=== PATIENT | female | born 1995 | race Caucasian/White ===

== ENCOUNTER 2022-12-05 07:31 | Inpatient (IN) ==
[2022-12-05] MEDS ORDERED: OXYTOCIN 30 UNITS/500 ML BAG IV PRN ×5 (07:42→09:37)
[2022-12-05] MEDS ORDERED: LIDOCAINE 1% LOCAL 20 ML VIAL INFIL PRN ×2 (07:42→08:48)
--- NOTE | 2022-12-05 07:52 | History & Physical Report ---
Date of Service December 05, 2022 Assessment & Plan (1) Encounter for induction of labor: Plan: Patient is a 27 yo at 41 0/7 WGA presenting to labor and delivery for induction d/t post dates. Blood type: O+, GBS neg, rubella immune Helms balloon placed last night and subsequently fell out during urination; pt dilated fingertip this AM- will attempt to replace balloon Plan to start oxytocin and rupture membranes later if necessary Proceed with labor and vaginal delivery Admission and Anticipated Discharge Date Admission Date: December 05, 2022 History of Present Illness Chief Complaint: induction of labor Primary Care Provider: Candace Parra PA-C Patient is a 27 yo female currently at 41 0/7 WGA with an ARLETTE 11/28/2022 as determined by LMP who is here for induction of labor. Her was uncomplicated. Denies contractions; movement present; denies fluid loss; denies bloody show External FHT and external uterine monitors used; category 1 tracing; normal FHT variability Had regular appointments with OB. Labs: (04/27/2022) Blood type: O+ Antibody screen: negative Hgb: 13.6 (today) Hct: 38.8 (today) WBC: 12.50 (today) Plt: 147 (today) Rubella: immune VDRL/RPR: neg Gonorrhea: neg Chlamydia: neg HIV: neg HbSAg: neg GBS: neg Other screens: cff-DNA: declined CF: declined SMA: declined Allergies Allergy/AdvReac Type Severity Reaction Status Date / Time amoxicillin Allergy RASH Verified 12/02/22 14:39 Penicillins Allergy RASH Verified 12/02/22 14:39 Home Medications Medication Instructions Recorded Confirmed Type fluticasone propionate 50 2 spray intranasal DAILY 09/17/21 12/05/22 History mcg/actuation nasal spray,suspension (Flonase Allergy Relief) prenat.vits,noreen,una-cbdn-cxptl 1 tab PO DAILY 04/19/22 12/05/22 History docusate sodium 100 mg capsule 100 mg PO TID 12/04/22 12/05/22 History (Colace) Patient History Medical History (Updated 12/05/22 @ 07:50 by Kiley Esquivel DO) History of chicken pox Lactose intolerance Surgical History S/P skin biopsy Family History Grandmother (Maternal) Allergic rhinitis Sister Allergic rhinitis Mother Ulcerative colitis Hypercholesteremia labor Father Hypercholesteremia Denies family history of Ovarian cancer Breast cancer Colorectal cancer Social History Smoking Status: Never smoker Do You Dip or Chew Tobacco: No; Hx Alcohol Use: Yes (Not during ) Hx Substance Use: No Preferred Language: Greek Communication Ability: Effective Director Of Software Development Required: No Beliefs That Will Affect Care: None marital status: marital status details: Ananda Willingham (26) [phone] Current Living Situation: Spouse Current Living Situation Comment: lives with spouse, dog, cat-spouse changing litter current occupational status: employed current occupation: Admin Ass[employer] Other Information That Helps Us Care for You: No Feels Safe at Home: No Is there a partner from a previous relationship who is making you feel unsafe now?: No Any Concerns about Your Family Situation: No Would You Like to Speak to Someone About Your Situation: No Safety Concerns: Feels Safe At This Time Assistive Devices: None Review of Systems Denies fever, chills, sweats. Denies SOB, difficulty breathing, chest pain, palpitations, and chest pressure. Denies breast pain. Denies dysuria. Endorses headache. Denies changes in vision. Physical Exam Physical Exam: General: Alert and oriented. No acute distress CV: Regular rate and rhythm. No murmurs. Respiratory: CTA bilaterally. No rhonchi, wheezes, or crackles. No increased work of breathing. Abdomen: Gravid; Soft, nontender upon palpation Pelvic: Pelvic exam per attending attestation Lower extremities: No LE edema. No deep calf pain. Results & Data Vital Signs (Past 12 Hours) Vital Signs Pulse BP 12/05/22 07:42 117 H 171/111 H Supervising Physician Co-Signing Physician Notes Resident Physician Supervision Note: I interviewed and examined the patient. Discussed with Dr. Esquivel and agree with findings and plan as documented in the note. Any exceptions or clarifications are listed here: Patient presents for induction. Very anxious. She notes the helms bulb fell out at 8:30 last night. On exam, the cervix is FT/50/-3. Fetus category one. MICs on toco. I suspect that the helms bulb was never really in the cervix. After discussion with Dr. Chino, who is on service today, the patient is agreeable to trying to place another bulb. A speculum was placed the cx was visualized, the helms was placed through this an 25cc of sterile water bleeding. A small amount of bleeding noted. She got nauseated at the end of the procedure. The fht were in the 80s when she got nauseated but recovered when nausea resolved and patient placed on her side. Will begin low dose pitocin at this point with the helms. Fetus is categroy one at this point. GBS negative. Documented By: Anahy Godinez MD, FACOG Resident Activity Tracking Resident Involvement: Resident Care Provided Care Provided: OB Delivery
[2022-12-05 08:39] LABS: Hematocrit (blood only) 38.8 % (37.0-47.0); Hemoglobin 13.6 g/dl (12.0-16.0); Mean Corpuscular Hemoglobin 32.7 pg (25.0-34.0); Mean Corpuscular Hgb Conc 35.1 g/dL (32.0-36.0); Mean Corpuscular Volume 93.3 fL (80.0-100.0); Mean Platelet Volume 11.8 fL (9.4-12.4); Platelet Count 147 K/uL (130-400); RDW Coefficient of Variation 13.1 % (11.5-14.5); RDW Standard Deviation 44.2 fL (36.4-46.3); Red Blood Count 4.16 M/uL (4.20-5.40)
[2022-12-05] MEDS ORDERED: LACTATED RINGER'S 1,000 ML IV PRN (08:48)
[2022-12-05] MEDS: LACTATED RINGER'S 1,000 ML IV PRN ×2 (09:07→23:19)
[2022-12-05] MEDS ORDERED: ONDANSETRON INJ 2 MG/ML 2 ML VIAL IV PRN (09:33)
[2022-12-05 09:41] LABS: Albumin Globulin Ratio 1.1 (0.9-2); Albumin Level 3.3 gm/dl (3.4-5.0); BUN Creatinine Ratio 22.4 (10-20); Bilirubin,Total 0.3 mg/dl (0.2-1.0); Calcium 9.2 mg/dl (8.6-10.3); Creatinine Clr Calc Pharmacy 135.1 ml/min; Est GFR (African American) 144.4 ml/min; Est GFR (Non-African American) 124.6 ml/min; Potassium 4.1 mmol/L (3.5-5.1); Total Protein 6.3 gm/dl (6.0-8.3)
--- NOTE | 2022-12-05 15:44 | Labor Progress Brief Note ---
Date of Service December 05, 2022 Subjective Intermittent back pain, helms still in Assessment & Plan (1) Encounter for induction of labor: Plan: 27 yo G1 at 41 wga admitted for late term IOL Normal to mild range BPs, labs wnl Fetus cat 1 Labor - helms bulb still in place, Pit at 6. Continue induction. Discussed pelvis is ?narrow vs tense due to discomfort from bulb and exam, no way to know if will impact progression without continuing GBS neg Epidural PRN, discussed potential benefit of it and she is open to it at some point Admission and Anticipated Discharge Date Admission Date: December 05, 2022 Physical Exam Genitourinary: OB Exam Monitor Tracing: + external FHT monitor used, + external uterine monitor used and + category I Helms bulb still palpated in cervix Results & Data Vital Signs (Past 12 Hours) Vital Signs Temp Pulse Resp BP 12/05/22 07:48 98.2 F 20 12/05/22 15:34 96 H 142/95 H 12/05/22 14:47 100 H 144/89 H 12/05/22 13:47 93 H 150/74 H 12/05/22 13:45 102 H 185/102 H 12/05/22 12:09 89 18 145/89 H 12/05/22 11:18 20 12/05/22 11:18 97.7 F 20 12/05/22 11:17 90 129/70 12/05/22 10:40 96 H 145/69 H 12/05/22 09:35 89 133/81 12/05/22 08:14 101 H 138/85 12/05/22 08:00 106 H 18 138/88 12/05/22 07:42 98.2 F 117 H 18 171/111 H Coding Level of Care Code None Diagnoses Encounter for induction of labor Z34.90
[2022-12-05] MEDS ORDERED: DOCUSATE SODIUM 100 MG CAP PO ONE (21:31)
[2022-12-05] MEDS ORDERED: SODIUM CHLORIDE 0.9% PF INJ 10 ML VIAL ONE (23:08)
[2022-12-05] MEDS ORDERED: ePHEDrine sulfate 50 MG/ML AMP ONE (23:08)
[2022-12-05] MEDS ORDERED: fentaNYL citrate PF 100 MCG/2 ML VIAL ONE (23:08)
[2022-12-05] MEDS ORDERED: BUPIVACAINE 0.25% PF 30 ML VIAL ONE (23:09)
[2022-12-05] MEDS ORDERED: LIDOCAINE 2%/EPINEPHRINE 1:200,000 20 ML PF ONE (23:09)
[2022-12-05] MEDS ORDERED: fentaNYL 2MCG/ML ROPIVACAINE 1.25MG/ML 100 ML BAG EPI ONE (23:09)
--- NOTE | 2022-12-05 23:24 | Anesthesiology Consultation ---
Date of Service December 05, 2022 Assessment & Plan Chart Review Chart Review: Acceptable Risk for Labor Epidural Consults Requested none ASA ASA2 Proposed Anesthesia Anesthesia Type: Labor Epidural Risk / Benefits Reviewed With: PT / POA / Parent / Guardian, Accepts Plan and Informed Consent Obtained History Height/Weight Height: 5 ft Weight: 81.193 kg Allergies Allergy/AdvReac Type Severity Reaction Status Date / Time amoxicillin Allergy RASH Verified 12/02/22 14:39 Penicillins Allergy RASH Verified 12/02/22 14:39 Medications Home Medications Medication Instructions Recorded Confirmed Last Taken fluticasone propionate 50 2 spray intranasal DAILY 09/17/21 12/05/22 12/05/22 mcg/actuation nasal spray,suspension (Flonase Allergy Relief) prenat.vits,noreen,ose-arpj-okmwe 1 tab PO DAILY 04/19/22 12/05/22 12/05/22 docusate sodium 100 mg capsule 100 mg PO TID 12/04/22 12/05/22 12/05/22 (Colace) Active Medications Generic Name Dose Route Start Last Admin Trade Name Freq PRN Reason Stop Dose Admin Lactated Ringer's 1,000 mls @ 125 mls/hr 12/05/22 07:42 12/05/22 23:19 Lr IV 12/07/22 07:41 999 mls/hr .Q8H PRN Administration L&D Protocol Protocol Oxytocin 30 units in 500 mls @ 20 mls/hr 12/05/22 09:08 12/05/22 20:59 Pitocin IV 12/07/22 09:07 1.2 units/hr .Q24H PRN 20 mls/hr Labor Induction/Augmentation Titration Protocol 1.2 UNITS/HR Ondansetron HCl 4 mg 12/05/22 09:33 12/05/22 11:55 Ondansetron Inj 2 Mg/Ml 2 Ml Vial IV 01/04/23 09:32 4 mg Q6H PRN Administration Nausea And Vomiting Past Medical History Medical History History of chicken pox Lactose intolerance Exercise / Class Metabolic Activity II 4-5 Yardwork/Stairs/Walk up hill Past Family History Family History Grandmother (Maternal) Allergic rhinitis Sister Allergic rhinitis Mother Ulcerative colitis Hypercholesteremia labor Father Hypercholesteremia Denies family history of Ovarian cancer Breast cancer Colorectal cancer Past Surgical History Surgical History S/P skin biopsy Past Anesthesia History No Hx of Anesthesia Complications and No Family Hx of Anesthesia Complications History of PONV No Hx of PONV and No Hx of Motion Sickness Social History Smoking Status: Never smoker Do You Dip or Chew Tobacco: No Hx Alcohol Use: Yes (Not during ) Hx Substance Use: No Physical Exam Vital Signs Last Vital Signs Temp 97.7 F 12/05/22 18:59 Pulse 88 12/05/22 21:55 Resp 20 12/05/22 21:30 BP 137/72 12/05/22 21:55 O2 Del Method Room Air 12/05/22 19:10 ENMT Mouth: no dentition abnormality Thyromental Distance: > or= 3.5 Finger Breadths Mallampati Class: II Neck normal visual inspection Respiratory normal respiratory effort Auscultation: lungs clear to auscultation bilaterally Cardiovascular Rate/Rhythm: regular rate and regular rhythm Testing Laboratory Results 12/05/22 08:13 12/05/22 08:17
--- NOTE | 2022-12-05 23:27 | Labor Progress Brief Note ---
Date of Service December 05, 2022 Subjective back pain more constant, helms bulb still in Assessment & Plan (1) Encounter for induction of labor: Plan: 27 yo G1 at 41 wga admitted for late term IOL Normal to mild range BPs, labs wnl Fetus cat 1 Labor - Balloon removed and it seems the internal os is more dilated c/w balloon benefit but external not yet equal. We did discuss that at this point, we have not gotten her into labor but have not tried all of our options. Did discuss that a is an option that the pt has as she is concerned about her energy level and being able to push in the future. Pit is currently at 20 but it seems that some change has occurred w/ pit and helms. Discussed continuing pit to 30 and attempting arom and pt desires to continue, previously palpated bag no longer palpated however very scant fluid seen so will need to further eval as pt desires epidural so will recheck after comfortable as it seems touching the cervix is very painful for her. GBS neg Desires epidural Admission and Anticipated Discharge Date Admission Date: December 05, 2022 Physical Exam Genitourinary: OB Exam Monitor Tracing: + external FHT monitor used, + external uterine monitor used and + category I Helms bulb removed as >12 hours. On re-exam, the internal os is dilated to 3ish cm I think while external is 1.5 so suspect the bulb did have some impact. Results & Data Vital Signs (Past 12 Hours) Vital Signs Temp Pulse Resp BP O2 Del Method 12/05/22 19:10 Room Air 12/05/22 21:30 20 12/05/22 21:30 20 12/05/22 21:55 88 137/72 12/05/22 21:00 18 12/05/22 21:00 18 12/05/22 20:57 90 136/75 12/05/22 19:56 98 H 18 139/83 12/05/22 19:00 16 12/05/22 19:00 16 12/05/22 18:59 97.7 F 99 H 20 148/80 H 12/05/22 17:30 16 12/05/22 17:30 16 12/05/22 18:33 96 H 141/87 H 12/05/22 17:25 103 H 147/72 H 12/05/22 16:30 18 12/05/22 16:30 18 12/05/22 16:00 16 12/05/22 16:00 16 12/05/22 16:36 100 H 132/81 12/05/22 15:30 16 12/05/22 15:30 98.2 F 16 12/05/22 15:34 96 H 142/95 H 12/05/22 14:47 100 H 144/89 H 12/05/22 13:47 93 H 150/74 H 12/05/22 13:45 102 H 185/102 H 12/05/22 12:09 89 18 145/89 H Coding Level of Care Code None Diagnoses Encounter for induction of labor Z34.90
[2022-12-06] MEDS ORDERED: LIDOCAINE 2%/EPINEPHRINE 1:200,000 20 ML PF EPI STA (00:34)
[2022-12-06] MEDS ORDERED: BUPIVACAINE 0.25% PF 30 ML VIAL EPI STA (00:34)
[2022-12-06] MEDS ORDERED: BUPIVACAINE 0.25% PF 30 ML VIAL EPI PRN (00:34)
[2022-12-06] MEDS ORDERED: fentaNYL 2MCG/ML ROPIVACAINE 1.25MG/ML 100 ML BAG EPI PRN (00:34)
[2022-12-06] MEDS ORDERED: fentaNYL citrate PF 100 MCG/2 ML VIAL EPI STA (00:34)
[2022-12-06] MEDS ORDERED: ROPIVACAINE 0.5% PF 5 MG/ML 20 ML VIAL EPI PRN (00:34)
[2022-12-06] MEDS ORDERED: ePHEDrine sulfate 50 MG/ML AMP IV PRN ×2 (00:34→10:49)
[2022-12-06] MEDS ORDERED: NALOXONE HCL 1 MG in SODIUM CHLORIDE 0.9% 1000ML 1,000 ML IV PRN ×2 (00:34→10:49)
[2022-12-06] MEDS ORDERED: NALBUPHINE HCL INJ 10 MG/ML AMP IV PRN ×2 (00:34→10:49)
[2022-12-06] MEDS ORDERED: SODIUM CHLORIDE 0.9% PF INJ 10 ML VIAL EPI PRN (00:34)
[2022-12-06] MEDS ORDERED: SODIUM CHLORIDE 0.9% PF INJ 10 ML VIAL EPI STA (00:34)
[2022-12-06] MEDS ORDERED: diphenhydrAMINE 50 MG/ML VIAL IV PRN ×2 (00:34→10:49)
[2022-12-06] MEDS ORDERED: LIDOCAINE 2% MPF LOCAL 5 ML VIAL EPI PRN (00:34)
[2022-12-06] MEDS ORDERED: fentaNYL citrate PF 100 MCG/2 ML VIAL EPI PRN (00:34)
[2022-12-06] MEDS ORDERED: NALOXONE HCL 0.4 MG/1 ML VIAL/CARP IV PRN ×2 (00:34→10:49)
[2022-12-06] MEDS ORDERED: ONDANSETRON INJ 2 MG/ML 2 ML VIAL IV PRN ×3 (00:34→11:59)
--- NOTE | 2022-12-06 01:54 | Labor Progress Brief Note ---
Date of Service December 06, 2022 Subjective More comfortable w/ epidural, still some discomfort Assessment & Plan (1) Encounter for induction of labor: Plan: 27 yo G1 at 41 wga admitted for late term IOL Normal to mild range BPs, labs wnl Fetus cat 1 Labor - pit at 22 but external monitor noted ?tachysystole, IUPC placed to guide pit but did not really pecan picker significant ctx. Does feel like has ROM as no bag felt. There is some progression in effacement and station. Discussed pit break to just reset given difficulty with monitoring and lack of change. Will break for one hour and restart GBS neg Epidural in place Admission and Anticipated Discharge Date Admission Date: December 05, 2022 Physical Exam Genitourinary: Manual OB Exam: + cervical dilation (about 3-4cm internal os, 1.5cm external), + cervical effacement 70% and + station -2 (improved from prior) OB Exam Monitor Tracing: + external FHT monitor used, + intra-uterine pressure catheter used (placed) and + category I no forebag palpated to rupture Results & Data Vital Signs (Past 12 Hours) Vital Signs Temp Pulse Resp BP Pulse Ox O2 Del Method 12/05/22 19:10 Room Air 12/06/22 01:47 105 H 94 12/06/22 01:42 108 H 96 12/06/22 01:40 96 H 138/87 12/06/22 01:37 105 H 95 12/06/22 01:32 91 H 94 12/06/22 01:27 110 H 96 12/06/22 01:26 100 H 141/89 H 12/06/22 01:22 88 93 12/06/22 01:17 93 H 94 12/06/22 01:12 94 H 95 12/06/22 01:11 97 H 136/81 12/06/22 01:00 16 12/06/22 01:00 16 12/06/22 01:07 98 H 95 12/06/22 01:02 92 H 93 12/06/22 00:57 92 H 93 12/06/22 00:55 94 H 143/90 H 12/06/22 00:52 105 H 95 12/06/22 00:47 99 H 94 12/06/22 00:42 97 H 97 12/06/22 00:41 95 H 139/88 12/06/22 00:37 91 H 95 12/06/22 00:32 92 H 95 12/06/22 00:30 16 12/06/22 00:30 16 12/06/22 00:09 16 12/06/22 00:09 16 12/06/22 00:26 98.2 F 12/06/22 00:27 93 H 96 12/06/22 00:23 93 H 16 127/79 12/06/22 00:22 98 H 95 12/06/22 00:19 96 H 18 137/72 12/06/22 00:17 93 H 95 12/06/22 00:12 95 H 96 12/06/22 00:13 94 H 16 128/80 12/06/22 00:07 93 H 18 95 12/06/22 00:08 92 H 124/70 12/06/22 00:05 88 20 133/75 12/06/22 00:03 90 18 135/78 12/06/22 00:02 106 H 96 12/05/22 23:57 108 H 96 12/05/22 23:52 98 H 96 12/05/22 23:47 112 H 96 12/05/22 23:42 110 H 95 12/05/22 23:37 112 H 96 12/05/22 23:32 117 H 97 12/05/22 23:10 98.2 F 12/05/22 23:27 98 H 97 12/05/22 23:23 98 H 94 12/05/22 23:22 97 H 95 12/05/22 21:30 20 12/05/22 21:30 20 12/05/22 21:55 88 137/72 12/05/22 21:00 18 12/05/22 21:00 18 12/05/22 20:57 90 136/75 12/05/22 19:56 98 H 18 139/83 12/05/22 19:00 16 12/05/22 19:00 16 12/05/22 18:59 97.7 F 99 H 20 148/80 H 12/05/22 17:30 16 12/05/22 17:30 16 12/05/22 18:33 96 H 141/87 H 12/05/22 17:25 103 H 147/72 H 12/05/22 16:30 18 12/05/22 16:30 18 12/05/22 16:00 16 12/05/22 16:00 16 12/05/22 16:36 100 H 132/81 12/05/22 15:30 16 12/05/22 15:30 98.2 F 16 12/05/22 15:34 96 H 142/95 H 12/05/22 14:47 100 H 144/89 H Coding Level of Care Code None Diagnoses Encounter for induction of labor Z34.90
[2022-12-06] MEDS: LACTATED RINGER'S 1,000 ML IV PRN (04:35)
--- NOTE | 2022-12-06 08:07 | Labor Progress Brief Note ---
Date of Service December 06, 2022 Subjective Comfortable w/ epidural Assessment & Plan (1) Encounter for induction of labor: Plan: 27 yo G1 at 41 wga admitted for late term IOL Normal to mild range BPs, labs wnl Fetus cat 1 Labor - Had pit break overnight, the previously palpated funnel is harder to feel as cervix has thinned. head has come down a bit as well. IUPC is in but seems to be glitchy as it comes in and out of registering ctx and strength. Did not get to AROM till around 11pm as balloon was in all day but there is some progress noted. Will continue pit and discuss with on-coming provider so they are aware of progress GBS neg Epidural in place Admission and Anticipated Discharge Date Admission Date: December 05, 2022 Physical Exam Genitourinary: OB Exam Monitor Tracing: + external FHT monitor used, + intra- uterine pressure catheter used (q3) and + category I SVE - funneling no longer palpated as effacement has progressed, more like 80% now. As cervix has thinned, the previous internal os 3cm is harder to palpate but I feel like I can feel it. Station about -1 Results & Data Vital Signs (Past 12 Hours) Vital Signs Temp Pulse Resp BP Pulse Ox 12/06/22 07:58 106 H 96 12/06/22 07:55 96 H 134/77 12/06/22 07:53 106 H 96 12/06/22 07:48 112 H 96 12/06/22 07:43 97 H 96 12/06/22 07:40 101 H 142/83 H 12/06/22 07:38 98 H 96 12/06/22 07:33 100 H 96 12/06/22 07:28 18 12/06/22 07:28 98.2 F 101 H 18 96 12/06/22 07:25 88 148/86 H 12/06/22 07:23 93 H 95 12/06/22 07:18 97 H 96 12/06/22 07:13 99 H 95 12/06/22 07:11 90 141/83 H 12/06/22 07:08 104 H 96 12/06/22 07:00 18 12/06/22 07:00 18 12/06/22 07:03 93 H 97 12/06/22 06:58 98 H 94 12/06/22 06:55 97 H 132/74 05 06:53 104 H 97 05 06:48 100 H 96 05 06:43 94 H 97 05 06:40 82 120/69 05 06:38 90 96 05 06:30 16 12/06/22 06:30 16 12/06/22 06:33 82 96 12/06/22 06:28 86 97 12/06/22 06:25 93 H 130/76 05 06:23 82 96 12/06/22 06:18 93 H 97 12/06/22 06:13 88 96 12/06/22 06:10 98.4 F 87 16 127/70 12/06/22 06:08 90 97 12/06/22 05:45 16 12/06/22 05:45 16 12/06/22 06:03 91 H 97 12/06/22 05:58 82 95 12/06/22 05:55 82 118/65 12/06/22 05:53 83 94 12/06/22 05:48 85 93 12/06/22 05:43 78 95 12/06/22 05:41 83 116/63 05 05:38 85 94 12/06/22 05:33 96 H 96 12/06/22 05:28 107 H 94 12/06/22 05:25 97 H 142/74 H 12/06/22 05:15 16 12/06/22 05:15 16 12/06/22 05:23 102 H 92 12/06/22 05:18 105 H 94 12/06/22 05:13 96 H 94 12/06/22 05:10 97 H 140/78 12/06/22 05:08 99 H 93 12/06/22 05:03 96 H 93 12/06/22 04:58 91 H 94 12/06/22 04:55 90 136/76 05 04:53 89 94 05 04:30 16 12/06/22 04:30 16 12/06/22 04:48 98 H 94 12/06/22 04:35 98.8 F 12/06/22 04:43 113 H 96 12/06/22 04:41 102 H 147/83 H 12/06/22 04:38 105 H 93 0523 04:33 107 H 96 12/06/22 04:28 89 95 12/06/22 04:25 87 104/57 L 12/06/22 04:23 87 94 12/06/22 04:18 88 94 12/06/22 04:13 87 94 12/06/22 04:10 90 117/58 L 12/06/22 04:08 97 H 94 12/06/22 04:03 88 93 12/06/22 03:58 88 93 12/06/22 03:55 96 H 118/60 12/06/22 03:53 92 H 96 12/06/22 03:48 91 H 94 12/06/22 03:43 92 H 95 12/06/22 03:40 90 112/59 L 12/06/22 03:38 101 H 97 12/06/22 03:33 96 H 95 12/06/22 03:28 91 H 94 12/06/22 03:25 90 113/55 L 12/06/22 03:23 98 H 95 12/06/22 03:18 97 H 95 12/06/22 02:30 16 12/06/22 02:30 16 12/06/22 03:00 18 12/06/22 03:00 18 12/06/22 03:13 102 H 94 12/06/22 03:08 18 12/06/22 03:08 98.6 F 18 12/06/22 03:11 89 113/56 L 12/06/22 03:07 95 H 94 12/06/22 03:02 103 H 95 12/06/22 02:57 110 H 94 12/06/22 02:55 109 H 132/77 12/06/22 02:52 100 H 92 12/06/22 02:47 96 H 93 12/06/22 02:42 109 H 93 12/06/22 02:40 97 H 133/74 05 02:37 96 H 92 12/06/22 02:32 108 H 93 05 02:27 98 H 93 12/06/22 02:25 103 H 138/80 05 02:22 95 H 94 05 02:17 108 H 93 05 02:12 95 H 93 12/06/22 02:10 103 H 134/83 05/23 02:07 102 H 94 12/06/22 02:00 16 12/06/22 02:00 16 12/06/22 02:02 105 H 94 12/06/22 01:57 98 H 94 12/06/22 01:56 97 H 136/86 12/06/22 01:45 98.2 F 12/06/22 01:52 104 H 95 12/06/22 01:28 18 12/06/22 01:28 18 12/06/22 01:47 105 H 94 12/06/22 01:42 108 H 96 12/06/22 01:40 96 H 138/87 12/06/22 01:37 105 H 95 12/06/22 01:32 91 H 94 12/06/22 01:27 110 H 96 12/06/22 01:26 100 H 141/89 H 12/06/22 01:22 88 93 12/06/22 01:17 93 H 94 12/06/22 01:12 94 H 95 12/06/22 01:11 97 H 136/81 12/06/22 01:00 16 12/06/22 01:00 16 12/06/22 01:07 98 H 95 12/06/22 01:02 92 H 93 12/06/22 00:57 92 H 93 12/06/22 00:55 94 H 143/90 H 12/06/22 00:52 105 H 95 12/06/22 00:47 99 H 94 12/06/22 00:42 97 H 97 12/06/22 00:41 95 H 139/88 12/06/22 00:37 91 H 95 12/06/22 00:32 92 H 95 12/06/22 00:30 16 12/06/22 00:30 16 12/06/22 00:09 16 12/06/22 00:09 16 12/06/22 00:26 98.2 F 12/06/22 00:27 93 H 96 12/06/22 00:23 93 H 16 127/79 12/06/22 00:22 98 H 95 12/06/22 00:19 96 H 18 137/72 12/06/22 00:17 93 H 95 12/06/22 00:12 95 H 96 12/06/22 00:13 94 H 16 128/80 0523 00:07 93 H 18 95 12/06/22 00:08 92 H 124/70 12/06/22 00:05 88 20 133/75 12/06/22 00:03 90 18 135/78 12/06/22 00:02 106 H 96 12/05/22 23:57 108 H 96 12/05/22 23:52 98 H 96 12/05/22 23:47 112 H 96 12/05/22 23:42 110 H 95 12/05/22 23:37 112 H 96 12/05/22 23:32 117 H 97 12/05/22 23:10 98.2 F 12/05/22 23:27 98 H 97 12/05/22 23:23 98 H 94 12/05/22 23:22 97 H 95 12/05/22 21:30 20 12/05/22 21:30 20 12/05/22 21:55 88 137/72 12/05/22 21:00 18 12/05/22 21:00 18 12/05/22 20:57 90 136/75 Coding Level of Care Code None Diagnoses Encounter for induction of labor Z34.90
--- NOTE | 2022-12-06 09:22 | Labor Progress Brief Note ---
Date of Service December 06, 2022 Signed over at 8:30 in the morning from Dr. Chino did really receive a full update patient then had a prolonged D-cell on Pitocin just after 9 AM this responded with changing position and stopping Pitocin. She had several prolonged D cells but these have now recovered with Pitocin off. I reviewed her long course of labor she has certainly had significant Pitocin time and cervical Mora dilation and she is also ruptured I discussed we could stop the Pitocin and restart at half dose again if the cells returned then we would have to stop again I also discussed the option of as there is caput palpated and I do think this is a prolonged effort. And with the worsening heart rate tracing they may not want to restart Pitocin I have given them some time to talk things over and certainly there is no immediacy to the situation as she is now has a reassuring looking heart rate tracing Assessment & Plan Admission and Anticipated Discharge Date Admission Date: December 05, 2022 Results & Data Vital Signs (Past 12 Hours) Vital Signs Temp Pulse Resp BP Pulse Ox 12/06/22 09:18 109 H 96 12/06/22 09:13 112 H 95 12/06/22 09:10 102 H 157/89 H 12/06/22 09:08 90 95 12/06/22 09:03 88 94 12/06/22 08:00 16 12/06/22 08:00 16 12/06/22 08:58 94 H 94 12/06/22 08:57 16 12/06/22 08:57 16 12/06/22 08:55 85 165/93 H 12/06/22 08:53 102 H 96 12/06/22 08:48 101 H 96 12/06/22 08:43 98 H 95 12/06/22 08:40 93 H 148/88 H 12/06/22 08:38 93 H 95 12/06/22 08:33 95 H 95 12/06/22 08:28 98 H 96 12/06/22 08:26 95 H 139/89 12/06/22 08:23 93 H 95 12/06/22 08:18 97 H 94 12/06/22 08:13 93 H 97 12/06/22 08:11 100 H 136/79 12/06/22 08:08 92 H 97 12/06/22 08:03 102 H 96 12/06/22 07:58 106 H 96 12/06/22 07:55 96 H 134/77 05 07:53 106 H 96 12/06/22 07:48 112 H 96 12/06/22 07:43 97 H 96 12/06/22 07:40 101 H 142/83 H 12/06/22 07:38 98 H 96 12/06/22 07:33 100 H 96 12/06/22 07:28 18 12/06/22 07:28 98.2 F 101 H 18 96 12/06/22 07:25 88 148/86 H 12/06/22 07:23 93 H 95 12/06/22 07:18 97 H 96 12/06/22 07:13 99 H 95 12/06/22 07:11 90 141/83 H 12/06/22 07:08 104 H 96 12/06/22 07:00 18 12/06/22 07:00 18 12/06/22 07:03 93 H 97 12/06/22 06:58 98 H 94 12/06/22 06:55 97 H 132/74 12/06/22 06:53 104 H 97 12/06/22 06:48 100 H 96 12/06/22 06:43 94 H 97 12/06/22 06:40 82 120/69 12/06/22 06:38 90 96 12/06/22 06:30 16 12/06/22 06:30 16 12/06/22 06:33 82 96 12/06/22 06:28 86 97 12/06/22 06:25 93 H 130/76 05 06:23 82 96 12/06/22 06:18 93 H 97 12/06/22 06:13 88 96 12/06/22 06:10 98.4 F 87 16 127/70 05 06:08 90 97 12/06/22 05:45 16 12/06/22 05:45 16 12/06/22 06:03 91 H 97 12/06/22 05:58 82 95 12/06/22 05:55 82 118/65 05 05:53 83 94 05 05:48 85 93 12/06/22 05:43 78 95 12/06/22 05:41 83 116/63 05 05:38 85 94 12/06/22 05:33 96 H 96 12/06/22 05:28 107 H 94 12/06/22 05:25 97 H 142/74 H 12/06/22 05:15 16 12/06/22 05:15 16 12/06/22 05:23 102 H 92 12/06/22 05:18 105 H 94 12/06/22 05:13 96 H 94 12/06/22 05:10 97 H 140/78 05 05:08 99 H 93 12/06/22 05:03 96 H 93 12/06/22 04:58 91 H 94 12/06/22 04:55 90 136/76 12/06/22 04:53 89 94 12/06/22 04:30 16 12/06/22 04:30 16 12/06/22 04:48 98 H 94 12/06/22 04:35 98.8 F 12/06/22 04:43 113 H 96 12/06/22 04:41 102 H 147/83 H 12/06/22 04:38 105 H 93 12/06/22 04:33 107 H 96 12/06/22 04:28 89 95 12/06/22 04:25 87 104/57 L 12/06/22 04:23 87 94 12/06/22 04:18 88 94 12/06/22 04:13 87 94 12/06/22 04:10 90 117/58 L 12/06/22 04:08 97 H 94 12/06/22 04:03 88 93 12/06/22 03:58 88 93 12/06/22 03:55 96 H 118/60 05 03:53 92 H 96 12/06/22 03:48 91 H 94 12/06/22 03:43 92 H 95 12/06/22 03:40 90 112/59 L 12/06/22 03:38 101 H 97 12/06/22 03:33 96 H 95 05 03:28 91 H 94 12/06/22 03:25 90 113/55 L 12/06/22 03:23 98 H 95 12/06/22 03:18 97 H 95 12/06/22 02:30 16 12/06/22 02:30 16 12/06/22 03:00 18 12/06/22 03:00 18 12/06/22 03:13 102 H 94 05 03:08 18 12/06/22 03:08 98.6 F 18 12/06/22 03:11 89 113/56 L 05 03:07 95 H 94 05 03:02 103 H 95 12/06/22 02:57 110 H 94 12/06/22 02:55 109 H 132/77 12/06/22 02:52 100 H 92 12/06/22 02:47 96 H 93 12/06/22 02:42 109 H 93 12/06/22 02:40 97 H 133/74 12/06/22 02:37 96 H 92 12/06/22 02:32 108 H 93 12/06/22 02:27 98 H 93 12/06/22 02:25 103 H 138/80 12/06/22 02:22 95 H 94 12/06/22 02:17 108 H 93 12/06/22 02:12 95 H 93 12/06/22 02:10 103 H 134/83 12/06/22 02:07 102 H 94 12/06/22 02:00 16 12/06/22 02:00 16 12/06/22 02:02 105 H 94 12/06/22 01:57 98 H 94 12/06/22 01:56 97 H 136/86 12/06/22 01:45 98.2 F 12/06/22 01:52 104 H 95 12/06/22 01:28 18 12/06/22 01:28 18 12/06/22 01:47 105 H 94 12/06/22 01:42 108 H 96 12/06/22 01:40 96 H 138/87 12/06/22 01:37 105 H 95 12/06/22 01:32 91 H 94 05 01:27 110 H 96 12/06/22 01:26 100 H 141/89 H 05 01:22 88 93 12/06/22 01:17 93 H 94 05 01:12 94 H 95 12/06/22 01:11 97 H 136/81 12/06/22 01:00 16 12/06/22 01:00 16 12/06/22 01:07 98 H 95 12/06/22 01:02 92 H 93 12/06/22 00:57 92 H 93 12/06/22 00:55 94 H 143/90 H 12/06/22 00:52 105 H 95 12/06/22 00:47 99 H 94 12/06/22 00:42 97 H 97 12/06/22 00:41 95 H 139/88 12/06/22 00:37 91 H 95 12/06/22 00:32 92 H 95 12/06/22 00:30 16 12/06/22 00:30 16 12/06/22 00:09 16 12/06/22 00:09 16 12/06/22 00:26 98.2 F 12/06/22 00:27 93 H 96 12/06/22 00:23 93 H 16 127/79 12/06/22 00:22 98 H 95 12/06/22 00:19 96 H 18 137/72 12/06/22 00:17 93 H 95 12/06/22 00:12 95 H 96 12/06/22 00:13 94 H 16 128/80 12/06/22 00:07 93 H 18 95 12/06/22 00:08 92 H 124/70 12/06/22 00:05 88 20 133/75 12/06/22 00:03 90 18 135/78 12/06/22 00:02 106 H 96 12/05/22 23:57 108 H 96 12/05/22 23:52 98 H 96 12/05/22 23:47 112 H 96 12/05/22 23:42 110 H 95 12/05/22 23:37 112 H 96 12/05/22 23:32 117 H 97 12/05/22 23:10 98.2 F 12/05/22 23:27 98 H 97 12/05/22 23:23 98 H 94 12/05/22 23:22 97 H 95 12/05/22 21:30 20 12/05/22 21:30 20 12/05/22 21:55 88 137/72 Coding Level of Care Code None Diagnoses
--- NOTE | 2022-12-06 09:25 | Labor Progress Brief Note ---
Date of Service December 06, 2022 Additionally this is the first time of check the patient I think she is in the range of 1 to 2 cm certainly for the external aspect of the cervix my understanding is there was more internal dilation earlier but I cannot palpate this at this time and I discussed there is a normal variability and checking cervix is between different providers and nurses Assessment & Plan Admission and Anticipated Discharge Date Admission Date: December 05, 2022 Results & Data Vital Signs (Past 12 Hours) Vital Signs Temp Pulse Resp BP Pulse Ox 12/06/22 09:18 109 H 96 12/06/22 09:13 112 H 95 12/06/22 09:10 102 H 157/89 H 12/06/22 09:08 90 95 12/06/22 09:03 88 94 12/06/22 08:00 16 12/06/22 08:00 16 12/06/22 08:58 94 H 94 12/06/22 08:57 16 12/06/22 08:57 16 12/06/22 08:55 85 165/93 H 12/06/22 08:53 102 H 96 12/06/22 08:48 101 H 96 12/06/22 08:43 98 H 95 12/06/22 08:40 93 H 148/88 H 12/06/22 08:38 93 H 95 12/06/22 08:33 95 H 95 12/06/22 08:28 98 H 96 12/06/22 08:26 95 H 139/89 12/06/22 08:23 93 H 95 12/06/22 08:18 97 H 94 12/06/22 08:13 93 H 97 12/06/22 08:11 100 H 136/79 12/06/22 08:08 92 H 97 12/06/22 08:03 102 H 96 12/06/22 07:58 106 H 96 12/06/22 07:55 96 H 134/77 12/06/22 07:53 106 H 96 12/06/22 07:48 112 H 96 12/06/22 07:43 97 H 96 12/06/22 07:40 101 H 142/83 H 12/06/22 07:38 98 H 96 12/06/22 07:33 100 H 96 12/06/22 07:28 18 12/06/22 07:28 98.2 F 101 H 18 96 12/06/22 07:25 88 148/86 H 05 07:23 93 H 95 12/06/22 07:18 97 H 96 05 07:13 99 H 95 12/06/22 07:11 90 141/83 H 05 07:08 104 H 96 12/06/22 07:00 18 12/06/22 07:00 18 12/06/22 07:03 93 H 97 12/06/22 06:58 98 H 94 12/06/22 06:55 97 H 132/74 05 06:53 104 H 97 12/06/22 06:48 100 H 96 12/06/22 06:43 94 H 97 12/06/22 06:40 82 120/69 05 06:38 90 96 12/06/22 06:30 16 12/06/22 06:30 16 12/06/22 06:33 82 96 12/06/22 06:28 86 97 12/06/22 06:25 93 H 130/76 12/06/22 06:23 82 96 12/06/22 06:18 93 H 97 12/06/22 06:13 88 96 12/06/22 06:10 98.4 F 87 16 127/70 12/06/22 06:08 90 97 12/06/22 05:45 16 12/06/22 05:45 16 12/06/22 06:03 91 H 97 12/06/22 05:58 82 95 12/06/22 05:55 82 118/65 12/06/22 05:53 83 94 12/06/22 05:48 85 93 12/06/22 05:43 78 95 12/06/22 05:41 83 116/63 12/06/22 05:38 85 94 12/06/22 05:33 96 H 96 12/06/22 05:28 107 H 94 12/06/22 05:25 97 H 142/74 H 12/06/22 05:15 16 12/06/22 05:15 16 12/06/22 05:23 102 H 92 12/06/22 05:18 105 H 94 12/06/22 05:13 96 H 94 12/06/22 05:10 97 H 140/78 12/06/22 05:08 99 H 93 12/06/22 05:03 96 H 93 12/06/22 04:58 91 H 94 12/06/22 04:55 90 136/76 05 04:53 89 94 12/06/22 04:30 16 12/06/22 04:30 16 12/06/22 04:48 98 H 94 12/06/22 04:35 98.8 F 05 04:43 113 H 96 12/06/22 04:41 102 H 147/83 H 12/06/22 04:38 105 H 93 12/06/22 04:33 107 H 96 12/06/22 04:28 89 95 12/06/22 04:25 87 104/57 L 12/06/22 04:23 87 94 12/06/22 04:18 88 94 12/06/22 04:13 87 94 12/06/22 04:10 90 117/58 L 12/06/22 04:08 97 H 94 12/06/22 04:03 88 93 12/06/22 03:58 88 93 12/06/22 03:55 96 H 118/60 12/06/22 03:53 92 H 96 12/06/22 03:48 91 H 94 12/06/22 03:43 92 H 95 12/06/22 03:40 90 112/59 L 12/06/22 03:38 101 H 97 12/06/22 03:33 96 H 95 12/06/22 03:28 91 H 94 12/06/22 03:25 90 113/55 L 12/06/22 03:23 98 H 95 12/06/22 03:18 97 H 95 12/06/22 02:30 16 12/06/22 02:30 16 12/06/22 03:00 18 12/06/22 03:00 18 12/06/22 03:13 102 H 94 12/06/22 03:08 18 12/06/22 03:08 98.6 F 18 12/06/22 03:11 89 113/56 L 12/06/22 03:07 95 H 94 12/06/22 03:02 103 H 95 12/06/22 02:57 110 H 94 12/06/22 02:55 109 H 132/77 12/06/22 02:52 100 H 92 12/06/22 02:47 96 H 93 12/06/22 02:42 109 H 93 05 02:40 97 H 133/74 05 02:37 96 H 92 05 02:32 108 H 93 05 02:27 98 H 93 12/06/22 02:25 103 H 138/80 05 02:22 95 H 94 05 02:17 108 H 93 05 02:12 95 H 93 12/06/22 02:10 103 H 134/83 12/06/22 02:07 102 H 94 12/06/22 02:00 16 12/06/22 02:00 16 12/06/22 02:02 105 H 94 12/06/22 01:57 98 H 94 12/06/22 01:56 97 H 136/86 12/06/22 01:45 98.2 F 12/06/22 01:52 104 H 95 12/06/22 01:28 18 12/06/22 01:28 18 12/06/22 01:47 105 H 94 12/06/22 01:42 108 H 96 12/06/22 01:40 96 H 138/87 12/06/22 01:37 105 H 95 12/06/22 01:32 91 H 94 12/06/22 01:27 110 H 96 12/06/22 01:26 100 H 141/89 H 12/06/22 01:22 88 93 12/06/22 01:17 93 H 94 12/06/22 01:12 94 H 95 12/06/22 01:11 97 H 136/81 12/06/22 01:00 16 12/06/22 01:00 16 12/06/22 01:07 98 H 95 12/06/22 01:02 92 H 93 12/06/22 00:57 92 H 93 05 00:55 94 H 143/90 H 12/06/22 00:52 105 H 95 05 00:47 99 H 94 05 00:42 97 H 97 12/06/22 00:41 95 H 139/88 12/06/22 00:37 91 H 95 05 00:32 92 H 95 05 00:30 16 05 00:30 16 05/23/23 00:09 16 12/06/22 00:09 16 12/06/22 00:26 98.2 F 12/06/22 00:27 93 H 96 12/06/22 00:23 93 H 16 127/79 12/06/22 00:22 98 H 95 12/06/22 00:19 96 H 18 137/72 12/06/22 00:17 93 H 95 12/06/22 00:12 95 H 96 12/06/22 00:13 94 H 16 128/80 12/06/22 00:07 93 H 18 95 12/06/22 00:08 92 H 124/70 12/06/22 00:05 88 20 133/75 12/06/22 00:03 90 18 135/78 12/06/22 00:02 106 H 96 12/05/22 23:57 108 H 96 12/05/22 23:52 98 H 96 12/05/22 23:47 112 H 96 12/05/22 23:42 110 H 95 12/05/22 23:37 112 H 96 12/05/22 23:32 117 H 97 12/05/22 23:10 98.2 F 12/05/22 23:27 98 H 97 12/05/22 23:23 98 H 94 12/05/22 23:22 97 H 95 12/05/22 21:30 20 12/05/22 21:30 20 12/05/22 21:55 88 137/72 Coding Level of Care Code None Diagnoses
[2022-12-06] MEDS ORDERED: GENTAMICIN CONSULT ACTIVE PRN (09:31)
--- NOTE | 2022-12-06 09:31 | Labor Progress Brief Note ---
Date of Service December 06, 2022 After having some time to discuss alone with her the patient would like to proceed to I did discuss that we certainly could restart Pitocin but at this stage she feels exhausted and with the decelerations wishes to proceed and I do not think this is unreasonable as there has not been significant progress progress risks were discussed including increased risk of infection with a prolonged labor section. The patient was counseled to the nature of the procedure including alternatives such as labor. Risks were discussed including bleeding infection injury to bowel bladder ureter vessels and even baby. Deep Vein thrombosis, pulmonary embolus discussed. Breakdown of incision reviewed. Deep vein thrombosis pulmonary embolus hernia and failure of the incision to heal were discussed Patient verbalized understanding of this and was given ample time to ask questions Assessment & Plan Admission and Anticipated Discharge Date Admission Date: December 05, 2022 Results & Data Vital Signs (Past 12 Hours) Vital Signs Temp Pulse Resp BP Pulse Ox 12/06/22 09:28 107 H 97 12/06/22 09:26 104 H 147/91 H 12/06/22 09:23 102 H 96 12/06/22 09:18 109 H 96 12/06/22 09:13 112 H 95 12/06/22 09:10 102 H 157/89 H 12/06/22 09:08 90 95 12/06/22 09:03 88 94 12/06/22 08:00 16 12/06/22 08:00 16 12/06/22 08:58 94 H 94 12/06/22 08:57 16 12/06/22 08:57 16 12/06/22 08:55 85 165/93 H 12/06/22 08:53 102 H 96 12/06/22 08:48 101 H 96 12/06/22 08:43 98 H 95 12/06/22 08:40 93 H 148/88 H 12/06/22 08:38 93 H 95 12/06/22 08:33 95 H 95 12/06/22 08:28 98 H 96 12/06/22 08:26 95 H 139/89 12/06/22 08:23 93 H 95 12/06/22 08:18 97 H 94 12/06/22 08:13 93 H 97 12/06/22 08:11 100 H 136/79 12/06/22 08:08 92 H 97 12/06/22 08:03 102 H 96 12/06/22 07:58 106 H 96 12/06/22 07:55 96 H 134/77 05 07:53 106 H 96 12/06/22 07:48 112 H 96 12/06/22 07:43 97 H 96 12/06/22 07:40 101 H 142/83 H 12/06/22 07:38 98 H 96 12/06/22 07:33 100 H 96 12/06/22 07:28 18 12/06/22 07:28 98.2 F 101 H 18 96 12/06/22 07:25 88 148/86 H 12/06/22 07:23 93 H 95 12/06/22 07:18 97 H 96 12/06/22 07:13 99 H 95 12/06/22 07:11 90 141/83 H 12/06/22 07:08 104 H 96 12/06/22 07:00 18 12/06/22 07:00 18 12/06/22 07:03 93 H 97 12/06/22 06:58 98 H 94 12/06/22 06:55 97 H 132/74 12/06/22 06:53 104 H 97 12/06/22 06:48 100 H 96 12/06/22 06:43 94 H 97 12/06/22 06:40 82 120/69 05 06:38 90 96 12/06/22 06:30 16 12/06/22 06:30 16 12/06/22 06:33 82 96 12/06/22 06:28 86 97 12/06/22 06:25 93 H 130/76 05 06:23 82 96 12/06/22 06:18 93 H 97 12/06/22 06:13 88 96 12/06/22 06:10 98.4 F 87 16 127/70 05 06:08 90 97 12/06/22 05:45 16 05 05:45 16 05 06:03 91 H 97 12/06/22 05:58 82 95 05 05:55 82 118/65 05 05:53 83 94 05 05:48 85 93 12/06/22 05:43 78 95 12/06/22 05:41 83 116/63 05 05:38 85 94 05 05:33 96 H 96 05 05:28 107 H 94 12/06/22 05:25 97 H 142/74 H 12/06/22 05:15 16 12/06/22 05:15 16 12/06/22 05:23 102 H 92 12/06/22 05:18 105 H 94 05 05:13 96 H 94 12/06/22 05:10 97 H 140/78 05 05:08 99 H 93 12/06/22 05:03 96 H 93 12/06/22 04:58 91 H 94 12/06/22 04:55 90 136/76 12/06/22 04:53 89 94 12/06/22 04:30 16 12/06/22 04:30 16 12/06/22 04:48 98 H 94 12/06/22 04:35 98.8 F 12/06/22 04:43 113 H 96 12/06/22 04:41 102 H 147/83 H 12/06/22 04:38 105 H 93 12/06/22 04:33 107 H 96 12/06/22 04:28 89 95 12/06/22 04:25 87 104/57 L 12/06/22 04:23 87 94 12/06/22 04:18 88 94 12/06/22 04:13 87 94 12/06/22 04:10 90 117/58 L 12/06/22 04:08 97 H 94 12/06/22 04:03 88 93 12/06/22 03:58 88 93 05 03:55 96 H 118/60 05 03:53 92 H 96 12/06/22 03:48 91 H 94 12/06/22 03:43 92 H 95 05 03:40 90 112/59 L 12/06/22 03:38 101 H 97 05 03:33 96 H 95 12/06/22 03:28 91 H 94 12/06/22 03:25 90 113/55 L 12/06/22 03:23 98 H 95 05 03:18 97 H 95 12/06/22 02:30 16 12/06/22 02:30 16 12/06/22 03:00 18 12/06/22 03:00 18 12/06/22 03:13 102 H 94 05 03:08 18 12/06/22 03:08 98.6 F 18 12/06/22 03:11 89 113/56 L 12/06/22 03:07 95 H 94 05 03:02 103 H 95 05 02:57 110 H 94 12/06/22 02:55 109 H 132/77 12/06/22 02:52 100 H 92 12/06/22 02:47 96 H 93 12/06/22 02:42 109 H 93 12/06/22 02:40 97 H 133/74 12/06/22 02:37 96 H 92 12/06/22 02:32 108 H 93 12/06/22 02:27 98 H 93 12/06/22 02:25 103 H 138/80 12/06/22 02:22 95 H 94 12/06/22 02:17 108 H 93 12/06/22 02:12 95 H 93 12/06/22 02:10 103 H 134/83 12/06/22 02:07 102 H 94 12/06/22 02:00 16 12/06/22 02:00 16 12/06/22 02:02 105 H 94 12/06/22 01:57 98 H 94 12/06/22 01:56 97 H 136/86 12/06/22 01:45 98.2 F 12/06/22 01:52 104 H 95 12/06/22 01:28 18 12/06/22 01:28 18 12/06/22 01:47 105 H 94 12/06/22 01:42 108 H 96 12/06/22 01:40 96 H 138/87 12/06/22 01:37 105 H 95 12/06/22 01:32 91 H 94 12/06/22 01:27 110 H 96 12/06/22 01:26 100 H 141/89 H 05 01:22 88 93 12/06/22 01:17 93 H 94 05 01:12 94 H 95 12/06/22 01:11 97 H 136/81 12/06/22 01:00 16 12/06/22 01:00 16 12/06/22 01:07 98 H 95 12/06/22 01:02 92 H 93 12/06/22 00:57 92 H 93 12/06/22 00:55 94 H 143/90 H 12/06/22 00:52 105 H 95 12/06/22 00:47 99 H 94 12/06/22 00:42 97 H 97 12/06/22 00:41 95 H 139/88 12/06/22 00:37 91 H 95 12/06/22 00:32 92 H 95 12/06/22 00:30 16 12/06/22 00:30 16 12/06/22 00:09 16 12/06/22 00:09 16 12/06/22 00:26 98.2 F 12/06/22 00:27 93 H 96 12/06/22 00:23 93 H 16 127/79 12/06/22 00:22 98 H 95 12/06/22 00:19 96 H 18 137/72 12/06/22 00:17 93 H 95 12/06/22 00:12 95 H 96 12/06/22 00:13 94 H 16 128/80 12/06/22 00:07 93 H 18 95 12/06/22 00:08 92 H 124/70 12/06/22 00:05 88 20 133/75 12/06/22 00:03 90 18 135/78 12/06/22 00:02 106 H 96 12/05/22 23:57 108 H 96 12/05/22 23:52 98 H 96 12/05/22 23:47 112 H 96 12/05/22 23:42 110 H 95 12/05/22 23:37 112 H 96 12/05/22 23:32 117 H 97 12/05/22 23:10 98.2 F 12/05/22 23:27 98 H 97 12/05/22 23:23 98 H 94 12/05/22 23:22 97 H 95 12/05/22 21:55 88 137/72 Coding Level of Care Code None Diagnoses
[2022-12-06] MEDS ORDERED: CLINDAMYCIN/D5W 900 MG/50 ML BAG IV ONE (10:00)
[2022-12-06] MEDS ORDERED: GENTAMICIN SULFATE 400 MG in DEXTROSE 5% 100 ML IV ONE (10:00)
[2022-12-06] MEDS ORDERED: ONDANSETRON INJ 2 MG/ML 2 ML VIAL ONE (10:07)
[2022-12-06] MEDS ORDERED: LIDOCAINE 2%/EPINEPHRINE 1:200,000 20 ML PF ONE (10:07)
[2022-12-06] MEDS ORDERED: OXYTOCIN 10 UNITS/ML 10ML VIAL ONE (10:07)
[2022-12-06] MEDS ORDERED: MoRPHine SULFATE PF 1 MG/ML 10 ML AMP/VIAL ONE (10:07)
[2022-12-06] MEDS ORDERED: PHENYLEPHRINE 100MCG/ML 5ML SYR ONE (10:07)
[2022-12-06] MEDS ORDERED: MoRPHine SULFATE PF 1 MG/ML 10 ML AMP/VIAL EPI ONE (10:49)
[2022-12-06] MEDS ORDERED: MEPERIDINE HCL 25 MG/ML CARP/VIAL IV PRN (10:49)
[2022-12-06] MEDS ORDERED: PROMETHAZINE HCL 6.25 MG in SODIUM CHLORIDE 0.9% 50 ML IV PRN (10:49)
[2022-12-06] MEDS ORDERED: HYDROmorphone INJ 0.5 MG/0.5 ML SYR IV PRN (10:49)
[2022-12-06] MEDS ORDERED: LACTATED RINGER'S 500 ML IV PRN (10:49)
[2022-12-06] MEDS ORDERED: NALOXONE HCL 0.08 MG in SYRINGE 1.8 ML IV PRN (10:49)
[2022-12-06] MEDS ORDERED: DC INTRASPINAL MORPHINE SCH (11:00)
[2022-12-06] MEDS ORDERED: NO NARCOTICS OR SEDATIVES SCH (11:00)
[2022-12-06] MEDS ORDERED: SODIUM CHLORIDE 0.9% 1000ML 1,000 ML IV SCH (11:00)
--- NOTE | 2022-12-06 11:19 | Anesthesia Procedure Note ---
Date of Service December 06, 2022 Anesthesia Post Epidural Note Vital Signs Vital Signs: Temp Pulse Resp BP Pulse Ox O2 Del Method 36.8 C 99 H 16 151/75 H 99 Room Air 12/06/22 07:28 12/06/22 10:13 12/06/22 08:57 12/06/22 09:40 12/06/22 10:13 12/05/22 19:10 Pain Intensity Abdomen: Pain Intensity: 2 Notes Mental Status: alert / awake / arousable and participated in evaluation Patient Amnestic to Procedure: No Nausea / Vomiting: adequately controlled Pain: adequately controlled Airway Patency, RR, SpO2: stable & adequate BP & HR: stable & adequate Hydration State: stable & adequate Neuraxial Anesthesia: was administered and sensory block is resolving Anesthetic Complications: no major complications apparent and Pt Satisfied with anesthetic care Epidural: Removed without complications and With tip intact
--- NOTE | 2022-12-06 11:21 | Operative Report ---
[facility] Post Operative Report Pre & Post Diagnosis Operation Date: 12/06/22 09:45 Pre-Op Diagnosis: Failure to progress. intolerance of labor. Post-Op Diagnosis: Failure to progress. intolerance of labor. Delivery of live female child at 1040 I identified the patient and participated in the time-out.: Yes Procedure Operation Date: 12/06/22 09:45 Actual Procedures p Section in LD, delivery of live female child at 1040 - Lindsey Sullivan MD, FACOG Surgeon Lindsey Sullivan MD, FACOG [employer] Lisbet Vital Estimated Blood Loss 500 Findings Consistent with Post-Op Diagnosis Specimens Cord gasses Cord blood placenta Description of Procedure Regional anesthetic had been given by anesthesia patient was prepped and draped with a leftward tilt preoperative antibiotics had been given in appropriate timing by anesthesiology. Once the prep was allowed to fully dry timeout was performed. Pickups with teeth were used to test the incision area was found to be adequate for incision as the patient did not feel sharp pain. Scalpel was used to make a Pfannenstiel incision on the lower abdomen. We then cut through the subcutaneous fat down to the level of the anterior rectus sheath fascia this was cut in the midline and then extended laterally with the curved M sammi scissors. At this stage we then placed 2 Dell clamps on the anterior aspect of the fascia. Using the curved Davis's we are able to dissect the fascia superiorly away from the rectus muscles. Care was taken to maintain hemostasis. Dell clamps were then placed to the inferior aspect of the anterior sheath of the fascia. Fascia was then dissected away from the rectus muscles inferiorly towards the pubic bone. A Dell was then placed in the midline both inferiorly and superiorly. This was to allow exposure by retraction rectus muscles were in the midline with were then able to cut through the peritoneum and then enter the peritoneal cavity. Opening was enlarged to allow exposure of the peritoneal cavity both superiorly and inferiorly. Once adequate space was obtained a bladder retractor was placed to expose the lower segment Metzenbaums were used to dissect the bladder flap inferiorly away from the uterus. This was done sharply bladder retractor was then repositioned to expose the lower segment of the uterus Fresh scalpel was used to make a low transverse incision on the uterus. Uterus was then entered bluntly with the operators finger, membranes ruptured and the opening was enlarged using the operators fingers bluntly pulling superiorly and inferiorly to allow exposure. Baby was delivered by first flexion of the head elevation of the head out of the pelvis and then pressure by the preschool assistant on the maternal abdomen. Baby's head was then delivered mouth and then nares were suctioned and then using gentle traction the baby was fully delivered. Live vigorous infant. Fluid was clear cord clamped and cut cord gases obtained cord blood obtained baby handed to pediatrics. Placenta removed was removed with traction we ensure the entire placenta was removed with a moist lap sponge into the uterus. Note the was meconium and there was significant molding noted there was a live vigorous female Uterus was then exteriorized. IV Pitocin had been started by anesthesia tone improved there were no extensions the uterus was then closed using 0 Monocryl in a 2 layer closure the first layer closed in a running locked fashion from left to right and then a second closure from left to right in a running nonlocked fashion. At this stage hemostasis was excellent. Uterus was placed back in the peritoneal cavity with suction irrigation out and inspection of the uterus at this stage revealed excellent hemostasis Retractors were removed urine color was clear at this stage of the case we inspected the rectus muscles they were hemostatic fascia was closed with 0 Vicryl subcutaneous fat was irrigated and closed with 3-0 Vicryl skin closed with 4-0 subcuticular Monocryl NETO dressing applied I attest to the content of the Intraoperative Record and any orders documented therein. Any exceptions are noted below. OB Procedure Charges 45534
--- NOTE | 2022-12-06 11:29 | Anesthesiology Progress Note ---
Date of Service December 06, 2022 Anesthesia Post Procedure Vital Signs Vital Signs: Temp Pulse Resp BP Pulse Ox O2 Del Method 12/05/22 19:10 Room Air 12/06/22 11:27 106 H 92 12/06/22 11:25 114 H 97 12/06/22 11:26 111 H 137/86 12/06/22 10:13 99 H 99 12/06/22 10:08 94 H 99 12/06/22 10:03 91 H 99 12/06/22 09:58 105 H 96 12/06/22 09:53 97 H 99 12/06/22 09:48 93 H 98 12/06/22 09:43 90 98 12/06/22 09:40 93 H 151/75 H 12/06/22 09:38 109 H 95 12/06/22 09:33 107 H 96 12/06/22 09:28 107 H 97 12/06/22 09:26 104 H 147/91 H 12/06/22 09:23 102 H 96 12/06/22 09:18 109 H 96 12/06/22 09:13 112 H 95 12/06/22 09:10 102 H 157/89 H 12/06/22 09:08 90 95 12/06/22 09:03 88 94 12/06/22 08:00 16 12/06/22 08:00 16 12/06/22 08:58 94 H 94 12/06/22 08:57 16 12/06/22 08:57 16 12/06/22 08:55 85 165/93 H 12/06/22 08:53 102 H 96 12/06/22 08:48 101 H 96 12/06/22 08:43 98 H 95 12/06/22 08:40 93 H 148/88 H 12/06/22 08:38 93 H 95 12/06/22 08:33 95 H 95 12/06/22 08:28 98 H 96 12/06/22 08:26 95 H 139/89 12/06/22 08:23 93 H 95 12/06/22 08:18 97 H 94 12/06/22 08:13 93 H 97 12/06/22 08:11 100 H 136/79 12/06/22 08:08 92 H 97 12/06/22 08:03 102 H 96 12/06/22 07:58 106 H 96 12/06/22 07:55 96 H 134/77 12/06/22 07:53 106 H 96 12/06/22 07:48 112 H 96 12/06/22 07:43 97 H 96 12/06/22 07:40 101 H 142/83 H 12/06/22 07:38 98 H 96 12/06/22 07:33 100 H 96 12/06/22 07:28 18 12/06/22 07:28 36.8 C 101 H 18 96 12/06/22 07:25 88 148/86 H 12/06/22 07:23 93 H 95 12/06/22 07:18 97 H 96 12/06/22 07:13 99 H 95 12/06/22 07:11 90 141/83 H 12/06/22 07:08 104 H 96 12/06/22 07:00 18 12/06/22 07:00 18 12/06/22 07:03 93 H 97 12/06/22 06:58 98 H 94 12/06/22 06:55 97 H 132/74 12/06/22 06:53 104 H 97 12/06/22 06:48 100 H 96 12/06/22 06:43 94 H 97 12/06/22 06:40 82 120/69 12/06/22 06:38 90 96 12/06/22 06:30 16 12/06/22 06:30 16 12/06/22 06:33 82 96 12/06/22 06:28 86 97 12/06/22 06:25 93 H 130/76 12/06/22 06:23 82 96 12/06/22 06:18 93 H 97 12/06/22 06:13 88 96 12/06/22 06:10 36.9 C 87 16 127/70 05 06:08 90 97 12/06/22 05:45 16 12/06/22 05:45 16 12/06/22 06:03 91 H 97 12/06/22 05:58 82 95 12/06/22 05:55 82 118/65 12/06/22 05:53 83 94 12/06/22 05:48 85 93 12/06/22 05:43 78 95 05 05:41 83 116/63 12/06/22 05:38 85 94 12/06/22 05:33 96 H 96 12/06/22 05:28 107 H 94 12/06/22 05:25 97 H 142/74 H 12/06/22 05:15 16 12/06/22 05:15 16 12/06/22 05:23 102 H 92 12/06/22 05:18 105 H 94 12/06/22 05:13 96 H 94 12/06/22 05:10 97 H 140/78 12/06/22 05:08 99 H 93 12/06/22 05:03 96 H 93 12/06/22 04:58 91 H 94 12/06/22 04:55 90 136/76 12/06/22 04:53 89 94 12/06/22 04:30 16 12/06/22 04:30 16 12/06/22 04:48 98 H 94 12/06/22 04:35 37.1 C 12/06/22 04:43 113 H 96 12/06/22 04:41 102 H 147/83 H 12/06/22 04:38 105 H 93 12/06/22 04:33 107 H 96 12/06/22 04:28 89 95 12/06/22 04:25 87 104/57 L 12/06/22 04:23 87 94 12/06/22 04:18 88 94 12/06/22 04:13 87 94 12/06/22 04:10 90 117/58 L 12/06/22 04:08 97 H 94 12/06/22 04:03 88 93 12/06/22 03:58 88 93 12/06/22 03:55 96 H 118/60 12/06/22 03:53 92 H 96 12/06/22 03:48 91 H 94 12/06/22 03:43 92 H 95 12/06/22 03:40 90 112/59 L 12/06/22 03:38 101 H 97 12/06/22 03:33 96 H 95 12/06/22 03:28 91 H 94 12/06/22 03:25 90 113/55 L 12/06/22 03:23 98 H 95 05 03:18 97 H 95 12/06/22 02:30 16 12/06/22 02:30 16 12/06/22 03:00 18 12/06/22 03:00 18 12/06/22 03:13 102 H 94 05 03:08 18 12/06/22 03:08 37.0 C 18 12/06/22 03:11 89 113/56 L 05 03:07 95 H 94 12/06/22 03:02 103 H 95 12/06/22 02:57 110 H 94 12/06/22 02:55 109 H 132/77 12/06/22 02:52 100 H 92 12/06/22 02:47 96 H 93 12/06/22 02:42 109 H 93 12/06/22 02:40 97 H 133/74 12/06/22 02:37 96 H 92 12/06/22 02:32 108 H 93 12/06/22 02:27 98 H 93 12/06/22 02:25 103 H 138/80 12/06/22 02:22 95 H 94 12/06/22 02:17 108 H 93 12/06/22 02:12 95 H 93 12/06/22 02:10 103 H 134/83 12/06/22 02:07 102 H 94 12/06/22 02:00 16 12/06/22 02:00 16 12/06/22 02:02 105 H 94 12/06/22 01:57 98 H 94 12/06/22 01:56 97 H 136/86 12/06/22 01:45 36.8 C 12/06/22 01:52 104 H 95 12/06/22 01:28 18 12/06/22 01:28 18 12/06/22 01:47 105 H 94 12/06/22 01:42 108 H 96 12/06/22 01:40 96 H 138/87 12/06/22 01:37 105 H 95 12/06/22 01:32 91 H 94 12/06/22 01:27 110 H 96 12/06/22 01:26 100 H 141/89 H 12/06/22 01:22 88 93 05 01:17 93 H 94 12/06/22 01:12 94 H 95 12/06/22 01:11 97 H 136/81 12/06/22 01:00 16 12/06/22 01:00 16 12/06/22 01:07 98 H 95 05 01:02 92 H 93 05/23/23 00:57 92 H 93 12/06/22 00:55 94 H 143/90 H 12/06/22 00:52 105 H 95 12/06/22 00:47 99 H 94 12/06/22 00:42 97 H 97 12/06/22 00:41 95 H 139/88 12/06/22 00:37 91 H 95 12/06/22 00:32 92 H 95 12/06/22 00:30 16 12/06/22 00:30 16 12/06/22 00:09 16 12/06/22 00:09 16 12/06/22 00:26 36.8 C 12/06/22 00:27 93 H 96 12/06/22 00:23 93 H 16 127/79 12/06/22 00:22 98 H 95 12/06/22 00:19 96 H 18 137/72 12/06/22 00:17 93 H 95 12/06/22 00:12 95 H 96 12/06/22 00:13 94 H 16 128/80 12/06/22 00:07 93 H 18 95 12/06/22 00:08 92 H 124/70 12/06/22 00:05 88 20 133/75 12/06/22 00:03 90 18 135/78 12/06/22 00:02 106 H 96 12/05/22 23:57 108 H 96 12/05/22 23:52 98 H 96 12/05/22 23:47 112 H 96 12/05/22 23:42 110 H 95 12/05/22 23:37 112 H 96 12/05/22 23:32 117 H 97 12/05/22 23:10 36.8 C 12/05/22 23:27 98 H 97 12/05/22 23:23 98 H 94 12/05/22 23:22 97 H 95 12/05/22 21:30 20 12/05/22 21:30 20 12/05/22 21:55 88 137/72 12/05/22 21:00 18 12/05/22 21:00 18 12/05/22 20:57 90 136/75 12/05/22 19:56 98 H 18 139/83 12/05/22 19:00 16 12/05/22 19:00 16 12/05/22 18:59 36.5 C 99 H 20 148/80 H 12/05/22 17:30 16 12/05/22 17:30 16 12/05/22 18:33 96 H 141/87 H 12/05/22 17:25 103 H 147/72 H 12/05/22 16:30 18 12/05/22 16:30 18 12/05/22 16:00 16 12/05/22 16:00 16 12/05/22 16:36 100 H 132/81 12/05/22 15:30 16 12/05/22 15:30 36.8 C 16 12/05/22 15:34 96 H 142/95 H 12/05/22 14:47 100 H 144/89 H 12/05/22 13:47 93 H 150/74 H 12/05/22 13:45 102 H 185/102 H 12/05/22 12:09 89 18 145/89 H Pain Intensity Abdomen: Pain Intensity: 2 Notes Mental Status: alert / awake / arousable and participated in evaluation Patient Amnestic to Procedure: No Nausea / Vomiting: adequately controlled Pain: adequately controlled Airway Patency, RR, SpO2: stable & adequate BP & HR: stable & adequate Hydration State: stable & adequate Neuraxial Anesthesia: was administered and sensory block is resolving Anesthetic Complications: no major complications apparent and Pt Satisfied with anesthetic care
[2022-12-06] MEDS ORDERED: MAGNESIUM HYDROXIDE SUSP 30 ML UDC PO PRN (11:59)
[2022-12-06] MEDS ORDERED: HYDROCORTISONE ACETATE 25 MG SUPP PR PRN (11:59)
[2022-12-06] MEDS ORDERED: DIPHTHERIA/TETANUS/PERTUSSIS Vaccine (Tdap, Age 7+yrs) 0.5mL SYR/VL IM ONE (11:59)
[2022-12-06] MEDS ORDERED: LACTATED RINGER'S 1,000 ML IV SCH (11:59)
[2022-12-06] MEDS ORDERED: SENNA 8.6 MG TAB PO PRN (11:59)
[2022-12-06] MEDS ORDERED: BENZOCAINE 20% AER SPR 82.5 GM CAN EXT PRN (11:59)
[2022-12-06] MEDS ORDERED: OXYTOCIN 20 UNITS in LACTATED RINGER'S 1,000 ML IV SCH (11:59)
[2022-12-06] MEDS: KETOROLAC 30 MG/ML VIAL IV PRN ×2 (12:47→18:19)
[2022-12-06] MEDS: SIMETHICONE 80 MG CHEW PO SCH ×3 (16:35→21:00)
[2022-12-07] MEDS: KETOROLAC 30 MG/ML VIAL IV PRN (00:46)
[2022-12-07] MEDS ORDERED: KETOROLAC 30 MG/ML VIAL IV PRN (04:51)
[2022-12-07] MEDS ORDERED: PROMETHAZINE HCL 25 MG in SODIUM CHLORIDE 0.9% 50 ML IV PRN (04:51)
[2022-12-07] MEDS ORDERED: diphenhydrAMINE Capsule 25 MG CAP PO PRN (04:51)
[2022-12-07] MEDS ORDERED: diphenhydrAMINE 50 MG/ML VIAL IV PRN (04:51)
--- NOTE | 2022-12-07 06:08 | Obstetrical Progress Note ---
Date of Service <Kiley PerezAlejandro Esquivel DO - Last Filed: 12/07/22 07:33> December 07, 2022 Assessment & Plan <Kiley Rey DO Sierra - Last Filed: 12/07/22 07:33> (1) care following delivery: Patient is PPD 1 s/p primary CS and doing well. - Vitals reviewed and pt has consistently been tachycardic for the last 24 hrs, BP stable - Pain well controlled with analgesics - OOB, ambulation, diet progression as tolerated - Blood type: O+, GBS neg, rubella immune - Plan to discharge tomorrow or Monday - After discharge, 6 week follow up with Dr. Sullivan (2) Chest pain: - EKG WNL, no signs of ischemia - suspect related to anxiety/MSK - continue to monitor for further symptom development <Lindsey Sullivan MD, FACOG - Last Filed: 12/07/22 07:52> (1) care following delivery: (2) Chest pain: Subjective <Kiley PerezAlejandro Esquivel DO - Last Filed: 12/07/22 07:33> Patient is a 27 yo female is POD #1 following delivery at 41 1/7 weeks. She reports feeling well overall this morning; however, she does not some chest pain. This pain is worse with certain movements, inhaling deeply, and when she had a "mental breakdown" this AM. She denies radiation to her arms or jaw. She has had similar pain in the past that was muscular in origin. She endorses abdominal cramping and 6/10 pain well managed on analgesics. Pt's catheter was removed this AM and she has not urinated yet. Tolerating regular meals this AM. Persistent lochia with some improvement this morning. Currently breast feeding. Review of Systems Denies fever, chills, sweats. Denies SOB, difficulty breathing, chest pain, palpitations, and chest pressure. Denies breast pain. Denies dysuria. Denies headache or changes in vision. Physical Exam <Kiley Esquivel DO - Last Filed: 12/07/22 07:33> General: Alert and oriented. No acute distress. CV: Regular rate and rhythm. No murmurs. Respiratory: CTA bilaterally. No rhonchi, wheezes, or crackles. No increased work of breathing. Abdomen: Positive bowel sounds. Soft, nontender, and nondistended. Uterus: Fundus firm and palpable. Surgical scar dressed with clean, dry bandage and NETO wound vacuum in place. Lower extremities: No LE edema. No deep calf pain. SCDs on and operational. Results & Data <Kiley Esquivel DO - Last Filed: 12/07/22 07:33> Vital Signs (Past 12 Hours) Vital Signs Temp Pulse Resp BP Pulse Ox O2 Del Method 12/07/22 02:30 17 94 12/07/22 01:30 16 93 12/07/22 00:30 17 92 12/06/22 23:30 19 94 12/06/22 22:30 18 94 12/06/22 21:30 18 93 12/06/22 20:30 19 96 12/06/22 19:30 18 95 12/06/22 23:56 36.9 C 106 H 19 115/79 93 Room Air 12/06/22 19:39 37.1 C 106 H 18 122/77 99 Room Air 12/06/22 18:30 18 96 <Lindsey Sullivan MD, FACOG - Last Filed: 12/07/22 07:52> Co-Signing Physician Notes Resident Physician Supervision Note: I was present with [Name of resident] during the history and exam. I discussed the case with the resident and agree with the findings and plan as documented in the note. Any exceptions or clarifications are listed here: [None] Documented By: Lindsey Sullivan MD, FACOG Resident Activity Tracking <Kiley Esquivel DO - Last Filed: 12/07/22 07:33> Resident Involvement: Resident Care Provided Care Provided: OB Delivery
[2022-12-07 07:14] LABS: Basophils # (auto) 0.04 K/uL (0-0.2); Basophils % (auto) 0.2 %; Eosinophils # (auto) 0.03 K/uL (0-0.50); Eosinophils % (auto) 0.2 %; Hematocrit (blood only) 28.7 % (37.0-47.0); Immature Granulocytes # (auto) 0.33 K/uL (0.01-0.20); Immature Granulocytes % (auto) 1.8 %; Lymphocytes # (auto) 1.66 K/uL (1.2-3.4); Lymphocytes % (auto) 8.9 %; Mean Corpuscular Hemoglobin 32.9 pg (25.0-34.0); Mean Corpuscular Hgb Conc 34.8 g/dL (32.0-36.0); Mean Corpuscular Volume 94.4 fL (80.0-100.0); Mean Platelet Volume 11.3 fL (9.4-12.4); Monocytes # (auto) 0.73 K/uL (0.11-0.59); Monocytes % (auto) 3.9 %; Neutrophils # (auto) 15.94 K/uL (1.40-6.50); Platelet Count 110 K/uL (130-400); RDW Coefficient of Variation 13.4 % (11.5-14.5); RDW Standard Deviation 46.3 fL (36.4-46.3); Red Blood Count 3.04 M/uL (4.20-5.40); White Blood Count 18.73 K/ul (4.8-10.8)
[2022-12-07] MEDS: PRENATAL VITAMIN 1 TAB PO SCH (08:44)
[2022-12-07] MEDS: SIMETHICONE 80 MG CHEW PO SCH ×4 (08:44→21:15)
[2022-12-07] MEDS: DOCUSATE SODIUM 100 MG CAP PO SCH ×2 (08:44→21:15)
[2022-12-07] MEDS: FERROUS SULFATE 325 MG TAB PO SCH (08:44)
[2022-12-07] MEDS: oxyCODONE/ACETAMINOPHEN 5mg/325mg TAB PO PRN ×4 (08:44→23:23)
[2022-12-07] MEDS: IBUPROFEN 600 MG TAB PO PRN ×4 (08:45→23:22)
[2022-12-07] MEDS: FLUTICASONE PROPIONATE NA SPR 16 GM BTL SCH (08:47)
--- NOTE | 2022-12-07 10:26 | Electrocardiogram Report ---
Test Reason : Blood Pressure : / mmHG Vent. Rate : 102 BPM Atrial Rate : 102 BPM P-R Int : 128 ms QRS Dur : 072 ms QT Int : 328 ms P-R-T Axes : 037 009 019 degrees QTc Int : 427 ms Sinus tachycardia Otherwise Normal ECG No previous ECGs available Confirmed by Drake Urrutia ([id number]) on 12/07/2022 10:26:36 AM Referred By: Juliane Chino Confirmed By:Drake Urrutia
[2022-12-07] MEDS ORDERED: bisacodyL 5 MG TABEC PO SCH (20:00)
[2022-12-07] MEDS ORDERED: GENTAMICIN CONSULT ACTIVE PRN (23:59)
--- NOTE | 2022-12-07 23:59 | Obstetrical Progress Note ---
Date of Service December 07, 2022 Assessment & Plan (1) Endometritis: Plan Suspect endometritis given prolonged labor, prolonged rupture and s/p c/s. Allergic to pcn so plan gent per pharmacy dosing and clinda. Check cbc. Continue pain meds. Reassured patient that this is not an unexpected complication given her situation. Reassured that we are immediately and appropriately treating. Not likely another cause but will be mindful. Discussed can continue to keep breast feeding/pumping. Questions answered to the best of my ability. Subjective CTSP by nursing. Patient had been doing well through the day. Had voided. NO gas. Walked in the [place] for over an hour. Suddenly she started to have shaking chills. She had been noted to be a bit tachy after the walk, but patient now feels heart racing. no sob or chest pain. Does continue to relate the pain in the right shoulder and ruq. She also reports rectal pain. She notes she started feeling this once her pain meds wore off. Recently treated with 1 percocet and one tylenol. Patient reports that her mother has UC and it was diagnosed around this age. Physical Exam patient resting in bed but seems anxious skin--hot to touch temp--37.2 this afternoon, recently 37.8 and now 38.1 pulse 120-130 chest--cta bilaterally cv--tachy, reg rhythm abd--soft, nondistended. andrzej dressing in place. no surrounding erythema, fu ndus firm but tender at u ext--no tenderness Results & Data Vital Signs (Past 12 Hours) Vital Signs Temp Pulse Resp BP Pulse Ox O2 Del Method 12/07/22 21:00 120 H 12/07/22 20:00 Room Air 12/07/22 20:00 37.2 C 130 H 20 116/75 95 Room Air 12/07/22 12:20 36.6 C 104 H 18 123/84 99 Room Air
[2022-12-08] MEDS: CLINDAMYCIN/D5W 600 MG/50 ML BAG IV SCH ×3 (00:32→16:50)
[2022-12-08 01:27] LABS: Basophils # (auto) 0.04 K/uL (0-0.2); Basophils % (auto) 0.2 %; Eosinophils # (auto) 0.08 K/uL (0-0.50); Eosinophils % (auto) 0.4 %; Hematocrit (blood only) 28.4 % (37.0-47.0); Hemoglobin 9.9 g/dl (12.0-16.0); Lymphocytes # (auto) 2.18 K/uL (1.2-3.4); Lymphocytes % (auto) 9.8 %; Mean Corpuscular Hemoglobin 33.2 pg (25.0-34.0); Mean Corpuscular Hgb Conc 34.9 g/dL (32.0-36.0); Mean Corpuscular Volume 95.3 fL (80.0-100.0); Mean Platelet Volume 11.5 fL (9.4-12.4); Monocytes # (auto) 0.84 K/uL (0.11-0.59); Monocytes % (auto) 3.8 %; Neutrophils # (auto) 18.25 K/uL (1.40-6.50); Neutrophils % (auto) 81.8 %; Platelet Count 139 K/uL (130-400); RDW Coefficient of Variation 13.4 % (11.5-14.5); RDW Standard Deviation 46.4 fL (36.4-46.3); Red Blood Count 2.98 M/uL (4.20-5.40); White Blood Count 22.29 K/ul (4.8-10.8)
[2022-12-08] MEDS: GENTAMICIN SULFATE 400 MG in DEXTROSE 5% 100 ML IV SCH (01:39)
[2022-12-08] MEDS: IBUPROFEN 600 MG TAB PO PRN ×5 (04:04→21:05)
[2022-12-08] MEDS: oxyCODONE/ACETAMINOPHEN 5mg/325mg TAB PO PRN ×5 (04:05→21:06)
--- NOTE | 2022-12-08 05:47 | Obstetrical Progress Note ---
Date of Service <Kiley Esquivel DO - Last Filed: 12/08/22 07:10> December 08, 2022 Assessment & Plan <Kiley Esquivel DO - Last Filed: 12/08/22 07:10> (1) care following delivery: Patient is PPD 2 s/p primary CS. - Vitals reviewed and pt continues to be tachycardic - Pain well controlled with analgesics - OOB, ambulation, diet progression as tolerated - Blood type: O+, GBS neg, rubella immune - Plan to discharge tomorrow or Monday pending clinical improvement of endometritis - After discharge, 6 week follow up with Dr. Sullivan (2) Chest pain: - EKG WNL, no signs of ischemia - suspect related to anxiety/MSK - no further symptom progression (3) Endometritis: - Tmax of 38.1C, continues to be tachycardic with fevers/chills - leukocytosis to 22 this AM w/ left shift - continue IV gentamycin and clindamycin [id number] (allergic to penicillins), will d/c home on oral ABX - plan for discharge Monday <Anahy Godinez MD, FACOG - Last Filed: 12/08/22 07:35> (1) care following delivery: (2) Chest pain: (3) Endometritis: Subjective <Kiley Esquivel DO - Last Filed: 12/08/22 07:10> Patient is a 27 yo female is POD #2 following delivery at 41 1/7 weeks. She reports continued fever/chills this AM. She endorses abdominal crampi ng and 1/10 pain well managed on analgesics. Her chest pain is currently resolved, but did feel some yesterday/last night when her pain meds were wearing off. Voiding without issue. Tolerating regular meals overnight and able to ambulate some. She thinks she has passed gas but no bowel movement. She endorses a lot of burping. Persistent lochia with some improvement this morning. Currently breast feeding. Review of Systems Endorses fever, chills, sweats. Denies SOB, difficulty breathing, palpitations, and chest pressure. Denies breast pain. Denies dysuria. Denies headache or changes in vision. Physical Exam <Kiley Esquivel DO - Last Filed: 12/08/22 07:10> General: Alert and oriented. No acute distress. Diaphoresis noted. CV: Tachycardic. Regular rhythm. No murmurs. Respiratory: CTA bilaterally. No rhonchi, wheezes, or crackles. No increased work of breathing. Abdomen: Positive bowel sounds. Soft, nontender, and nondistended. Uterus: Fundus firm and palpable. Surgical scar dressed with clean, dry bandage and NETO wound vacuum in place. Lower extremities: No LE edema. No deep calf pain. SCDs on and operational. Results & Data <Kiley Esquivel DO - Last Filed: 12/08/22 07:10> Vital Signs (Past 12 Hours) Vital Signs Temp Pulse Resp BP Pulse Ox O2 Del Method 12/08/22 03:45 36.7 C 107 H 18 129/82 94 Room Air 12/07/22 23:55 38.1 C H 12/07/22 23:20 37.8 C H 136 H 22 134/82 94 Room Air 12/07/22 21:00 120 H 12/07/22 20:00 Room Air 12/07/22 20:00 37.2 C 130 H 20 116/75 95 Room Air <Anahy Godinez MD, FACOG - Last Filed: 12/08/22 07:35> Co-Signing Physician Notes Resident Physician Supervision Note: I interviewed and examined the patient. Discussed with Dr. Esquivel and agree with findings and plan as documented in the note. Any exceptions or clarifications are listed here: Doing better. FEeling better. ON gent/clinda. No further temps. PE improved--ff, appro tender at u. NETO dressing dry and clean. Discussed course of 24-48 hours afebrile on IV antibiotics. Patient notes that her upper left shoulder/cp is improved. I suspect it is a gas bubble trapped and slowly being resolved. continue to monitor closely. Documented By: Anahy Godinez MD, FACOG Resident Activity Tracking <Kiley Esquivel DO - Last Filed: 12/08/22 07:10> Resident Involvement: Resident Care Provided Care Provided: OB Delivery
[2022-12-08 07:38] LABS: Hematocrit (blood only) 27.3 % (37.0-47.0); Hemoglobin 9.4 g/dl (12.0-16.0)
[2022-12-08] MEDS: SIMETHICONE 80 MG CHEW PO SCH ×4 (08:33→21:05)
[2022-12-08] MEDS: FERROUS SULFATE 325 MG TAB PO SCH (08:34)
[2022-12-08] MEDS: PRENATAL VITAMIN 1 TAB PO SCH (08:34)
[2022-12-08] MEDS: DOCUSATE SODIUM 100 MG CAP PO SCH ×2 (08:34→21:05)
[2022-12-08] MEDS: FLUTICASONE PROPIONATE NA SPR 16 GM BTL SCH (08:37)
[2022-12-08] MEDS ORDERED: bisacodyL 10 MG SUPP PR PRN (11:17)
--- NOTE | 2022-12-08 13:12 | Pharmacy Report ---
Pharmacy PK ABX Note - Date of Service December 08, 2022 - Assessment and Plan Assessment * Ms Willingham is a 27 year old F receiving gentamicin, clindamycin for treatment of endometritis. Pt is post- day #2 s/p section. * Plan is for ~24-48hr of IV abx and then d/c home on oral abx, per provider documentation. Plan Gentamicin * 5mg/kg (actual BW) IV q24h * No levels have been ordered at this time. If patient remains on IV gentamicin beyond 48hr, will consider obtaining gent level. Pharmacy will continue to follow and will adjust dose/frequency as necessary. Thank you. Pharmacy has transitioned to AUC monitoring for vancomycin. AUC/BEATRIS is the preferred PK/PD target and is associated with decreased risk of nephrotoxicity compared to traditional trough targets.
[2022-12-09] MEDS: CLINDAMYCIN/D5W 600 MG/50 ML BAG IV SCH ×2 (00:21→09:33)
[2022-12-09] MEDS: GENTAMICIN SULFATE 400 MG in DEXTROSE 5% 100 ML IV SCH (01:01)
[2022-12-09] MEDS: IBUPROFEN 600 MG TAB PO PRN ×3 (01:07→12:58)
[2022-12-09] MEDS: oxyCODONE/ACETAMINOPHEN 5mg/325mg TAB PO PRN ×3 (01:08→12:57)
--- NOTE | 2022-12-09 07:00 | Obstetrical Progress Note ---
Date of Service December 09, 2022 Assessment & Plan (1) care following delivery: D/C instructions reviewed. Pt already scheduled dressing removal in office next week, does not feel able/willing to remove at home. 6wk f/u also needed. Subjective Ambulation: ambulating normally Voiding: no voiding problems Passing Gas:: Yes Diet Tolerance:: regular diet Lochia:: Small Feeding Type:: breast feeding Physical Exam Constitutional WD/WN, vitals as above Eyes PERRL, conjunctivae normal, anicteric sclerae Neck normal visual inspection Respiratory normal respiratory effort and able to speak in complete sentences; no respiratory distress and no labored breathing Cardiovascular Rate/Rhythm: regular rate and regular rhythm Extremities: no edema Chest (Breasts) Chest: normal inspection of chest Gastrointestinal (Abdomen) Inspection/Auscultation: abdomen normal to inspection Soft, postgravid Emy in place, minimal shadowing Psychiatric A+Ox3, euthymic affect Genitourinary OB Exam Abdomen: + fundal height Fundus: + firm and + relation to umbilicus (fundus just below umbilicus); not tender Results & Data Vital Signs (Past 12 Hours) Vital Signs Temp Pulse Resp BP Pulse Ox O2 Del Method 12/08/22 23:04 98.6 F 98 H 20 114/74 94 Room Air 12/08/22 19:08 98.1 F 92 H 18 120/81 94 Room Air
[2022-12-09] MEDS: DOCUSATE SODIUM 100 MG CAP PO SCH ×2 (09:32→09:34)
[2022-12-09] MEDS: FERROUS SULFATE 325 MG TAB PO SCH (09:32)
[2022-12-09] MEDS: PRENATAL VITAMIN 1 TAB PO SCH (09:32)
[2022-12-09] MEDS: SIMETHICONE 80 MG CHEW PO SCH ×2 (09:32→12:57)
[2022-12-09] MEDS: FLUTICASONE PROPIONATE NA SPR 16 GM BTL SCH (09:35)
--- NOTE | 2022-12-13 21:52 | Discharge Summary ---
Date of Service December 13, 2022 Admission HPI Per Admitting Provider Patient is a 27 yo female currently at 41 0/7 WGA with an ARLETTE 11/28/2022 as determined by LMP who is here for induction of labor. Her was uncomplicated. Denies contractions; movement present; denies fluid loss; denies bloody show External FHT and external uterine monitors used; category 1 tracing; normal FHT variability Had regular appointments with OB. Labs: (04/27/2022) Blood type: O+ Antibody screen: negative Hgb: 13.6 (today) Hct: 38.8 (today) WBC: 12.50 (today) Plt: 147 (today) Rubella: immune VDRL/RPR: neg Gonorrhea: neg Chlamydia: neg HIV: neg HbSAg: neg GBS: neg Other screens: cff-DNA: declined CF: declined SMA: declined Discharge Data Consultations 12/05/22 07:45 Consult Anesthesiology Stat Procedures Performed Operation Date: 12/06/22 09:45 Actual Procedures p Section in LD, delivery of live female child at 1040 - Lindsey Sullivan MD, FACOG Supervising Physician Co-Signing Physician Notes Resident Physician Supervision Note: I interviewed and examined the patient. Discussed with Dr. Esquivel and agree with findings and plan as documented in the note. Any exceptions or c larifications are listed here: Doing better. FEeling better. ON gent/clinda. No further temps. PE improved--ff, appro tender at u. NETO dressing dry and clean. Discussed course of 24-48 hours afebrile on IV antibiotics. Patient notes that her upper left shoulder/cp is improved. I suspect it is a gas bubble trapped and slowly being resolved. continue to monitor closely. Documented By: Anahy Godinez MD, FACOG Coding Level of Care Code None Diagnoses
== END 2022-12-09 16:15 | disposition home or self-care (01) | DRG 786 ==
LOC: 4S1 07:31 → 4E2 12-06 13:43

== ENCOUNTER 2024-11-17 00:09 | Inpatient (IN) ==
[2024-11-17] MEDS ORDERED: GENTAMICIN CONSULT ACTIVE PRN (01:05)
--- NOTE | 2024-11-17 01:05 | History & Physical Report ---
Date of Service November 17, 2024 Assessment & Plan (1) Previous delivery affecting , antepartum: Plan: 38+ weeks was scheduled for section November 25 for repeat as she has a failure to progress she had leaking of fluid since yesterday and the was ass essed in the office apparently nitrazine was equivocal and ferning was negative no evidence of an AmniSure at that time since then later today she had heavier discharge and called me I had her present to the hospital on exam she had copious discharge nitrazine was positive ferning was negative however AmniSure was distinctly positive thus she has ruptured membranes does not wish will progress to section Repeat section. The patient was counseled to the nature of the procedure including alternatives such as labor. Risks were discussed including bleeding infection injury to bowel bladder ureter vessels and even baby. The risks of internal organ injury were discussed as being higher with prior sections. Deep Vein Thrombosis, pulmonary embolus and breakdown of the incision discussed. Deep vein thrombosis pulmonary embolus hernia and failure of the incision to heal were discussed Patient verbalized understanding of this and was given ample time to ask nilson ortiz History of Present Illness Primary Care Provider: ALINE Ayon ARLETTE Calculator Estimated Delivery Date Method Current WG Current Estimate 11/26/24 LMP (Certain) 38w 3d : 2 Full term: 1 Premature: 0 Total Number of Induced Abortions: 0 Total Number of Spontaneous Abortions: 0 Ectopics: 0 Multiple births: 0 Number of Living Children: 1 and Delivery Plans prior [id number]-[id number] like rpt C/S SCHEDULED FOR 11/25/[address] DAVIS Protocols We discussedand offered genetic testing at the visit today.This included cystic fibrosis and spinal muscular atrophy testing. Additionally we discussed and offered screening and diagnostic tests for chromosomal problems. These include NT, Quad screen, NIPS, Amniocentesis and CVS Allergies Allergy/AdvReac Type Severity Reaction Status Date / Time amoxicillin Allergy Severe Rash, Verified 11/15/24 13:45 purpura Penicillins Allergy Severe Rash, Verified 11/15/24 13:45 purpura Home Medications Medication Instructions Recorded Confirmed Type prenat.vits,noreen,hfx-nmcs-tufaw 1 tab PO DAILY 04/19/22 11/17/24 History cholecalciferol (vitamin D3) 50 50 mcg PO DAILY 11/13/24 11/17/24 History mcg (2,000 unit) tablet (Vitamin D3) docusate sodium 100 mg capsule 100 mg PO BID PRN prn 11/13/24 11/17/24 History Patient History Medical History (Updated 11/13/24 @ 15:01 by Myra West) Non-allergic rhinitis Allergic rhinitis Lactose intolerance Surgical History (Updated 11/13/24 @ 15:30 by Myra West) History of anesthesia reaction "Difficulty getting an epidural with previous childbirth" Primary performed 11/2022 at [facility] S/P section S/P skin biopsy Family History Grandmother (Maternal) Allergic rhinitis Sister Anxiety Multiple sclerosis Mother Ulcerative colitis Hypercholesteremia labor Diabetes Father Hypercholesteremia Denies family history of Ovarian cancer Breast cancer Colorectal cancer Social History (Updated 07/18/24 @ 11:10 by FLOR Dougherty) Smoking Status: Never smoker Second Hand Exposure: No; Do You Dip or Chew Tobacco: No; Hx Alcohol Use: No Hx Substance Use: No Preferred Language: Italian Communication Ability: Effective Trapeze Artist Required: No Beliefs That Will Affect Care: None marital status: marital status details: Ananda Willingham (28) [phone] Current Living Situation: Spouse Current Living Situation Comment: lives with spouse, child, dog, cat-spouse changing litter current occupational status: unemployed current occupation: Admin [employer] Other Information That Helps Us Care for You: No Feels Safe at Home: Yes Safety Concerns: Feels Safe At This Time Assistive Devices: Glasses Physical Exam Constitutional: WD/WN, vitals as above well developed and well nourished Respiratory: normal respiratory effort, lungs clear to auscultation normal respiratory effort Cardiovascular: RRR, no murmur, no edema Gastrointestinal (Abdomen): normal bowel sounds, soft, nontender, no hepatosplenomegaly Results & Data Vital Signs (Past 12 Hours) Vital Signs Temp Pulse Resp BP 11/17/24 00:29 98.1 F 112 H 18 132/87 11/17/24 00:26 112 H 132/87 Coding Level of Care Code None Diagnoses Previous delivery affecting , antepartum O34.219
[2024-11-17] MEDS: LACTATED RINGER'S 1,000 ML IV SCH (01:10)
[2024-11-17] MEDS ORDERED: AZITHROMYCIN 500 MG/255 ML BAG IV ONE (01:15)
[2024-11-17] MEDS ORDERED: SODIUM CHLORIDE 0.9% 100 ML IV PRN (01:19)
[2024-11-17] MEDS: ACETAMINOPHEN 500 MG TAB PO ONE (01:22)
[2024-11-17] MEDS: CLINDAMYCIN/D5W 900 MG/50 ML BAG IV ONE (01:26)
[2024-11-17 01:35] LABS: Hematocrit (blood only) 40.4 % (37.0-47.0); Hemoglobin 14.2 g/dl (12.0-16.0); Mean Corpuscular Hemoglobin 32.4 pg (25.0-34.0); Mean Corpuscular Hgb Conc 35.1 g/dL (32.0-36.0); Mean Corpuscular Volume 92.2 fL (80.0-100.0); Platelet Count 151 K/uL (130-400); RDW Coefficient of Variation 12.4 % (11.5-14.5); RDW Standard Deviation 41.8 fL (36.4-46.3); Red Blood Count 4.38 M/uL (4.20-5.40); White Blood Count 13.69 K/ul (4.8-10.8)
[2024-11-17] MEDS: GENTAMICIN SULFATE 400 MG in DEXTROSE 5% 100 ML IV ONE (01:57)
[2024-11-17] MEDS: CITRIC ACID/SODIUM CITRATE 15 ML UDC PO ONE (01:59)
[2024-11-17] MEDS ORDERED: MoRPHine SULFATE PF 1 MG/ML 10 ML AMP/VIAL ONE (02:06)
[2024-11-17] MEDS ORDERED: OXYTOCIN 10 UNITS/ML VIAL ONE (02:06)
[2024-11-17] MEDS ORDERED: ONDANSETRON INJ 2 MG/ML 2 ML VIAL ONE (02:07)
[2024-11-17] MEDS ORDERED: PHENYLEPHRINE HCL 25 MG/250 ML NSS IV ONE (02:07)
[2024-11-17] MEDS ORDERED: LACTATED RINGER'S 1,000 ML IV SCH ×2 (02:15→12:00)
--- NOTE | 2024-11-17 03:20 | Operative Report ---
Post Operative Report Pre & Post Diagnosis Operation Date: 11/17/24 02:00 Pre-Op Diagnosis: Repeat C/S Post-Op Diagnosis: same I identified the patient and participated in the time-out.: Yes Procedure Operation Date: 11/17/24 02:00 Actual Procedures p Section in LD for [facility] at 0238(Bilateral) - Lindsey Sullivan MD, FACOG Surgeon Lindsey Sullivan MD, FACOG Improvement Specialist Fercho Asher RN Quantitative Blood Loss (QBL) 687 Findings Consistent with Post-Op Diagnosis Specimens Cord blood Description of Procedure Regional anesthetic had been given by anesthesia patient was prepped and draped with a leftward tilt preoperative antibiotics had been given in appropriate timing by anesthesiology. Once the prep was allowed to fully dry timeout was performed. Pickups with teeth were used to test the incision area was found to be adequate for incision as the patient did not feel sharp pain. Scalpel was used to make a Pfannenstiel incision on the lower abdomen. We then cut through the subcutaneous fat down to the level of the anterior rectus sheath fascia this was cut in the midline and then extended laterally with the curved Davis scissors. At this stage we then placed 2 Dell clamps on the anterior aspect of the fascia. Using the curved Davis's we are able to dissect the fascia superiorly away from the rectus muscles. Care was taken to maintain hemostasis. Dell clamps were then placed to the inferior aspect of the anterior sheath of the fascia. Fascia was then dissected away from the rectus muscles inferiorly towards the pubic bone. A Dell was then placed in the midline both inferiorly and superiorly. This was to allow exposure by retraction rectus muscles were in the midline with were then able to cut through the peritoneum and then enter the peritoneal cavity. Opening was enlarged to allow exposure of the peritoneal cavity both superiorly and inferiorly. Once adequate space was obtained a bladder retractor was placed to expose the lower segment Metzenbaums were used to dissect the bladder flap inferiorly away from the uterus. This was done sharply bladder retractor was then repositioned to expose the lower segment of the uterus Fresh scalpel was used to make a low transverse incision on the uterus. Uterus was then entered bluntly with the operators finger, membranes ruptured and the opening was enlarged using the operators fingers bluntly pulling superiorly and inferiorly to allow exposure. Baby was delivered by first flexion of the head elevation of the head out of the pelvis and then pressure by the assistant professor of life sciences on the maternal abdomen. Baby's head was then delivered mouth and then nares were suctioned and then using gentle traction the baby was fully delivered. Live vigorous infant. Fluid was clear cord clamped and cut cord gases obtained cord blood obtained baby handed to pediatrics. Placenta removed was removed with traction we ensure the entire placenta was removed with a moist lap sponge into the uterus Uterus was then exteriorized. IV Pitocin had been started by anesthesia tone improved there was a small extension on the left side this was easily delineated using Dell's and was closed easily with 0 Monocryl the uterus was then closed using 0 Monocryl in a 2 layer closure the first layer closed in a running locked fashion from left to right and then a second closure from left to right in a running nonlocked fashion. At this stage hemostasis was excellent. Uterus was placed back in the peritoneal cavity with suction irrigation out and inspection of the uterus at this stage revealed excellent hemostasis Retractors were removed urine color was clear at this stage of the case we inspected the rectus muscles they were hemostatic fascia was closed with 0 Vicryl subcutaneous fat was irrigated and closed with 3-0 Vicryl skin closed with 4-0 subcuticular Monocryl Adnexa appeared normalized to the uterus I attest to the content of the Intraoperative Record and any orders documented therein. Any exceptions are noted below. OB Procedure Charges 05627
[2024-11-17] MEDS ORDERED: NALOXONE HCL 1 MG in SODIUM CHLORIDE 0.9% 1,000 ML IV PRN (03:30)
[2024-11-17] MEDS ORDERED: MEPERIDINE HCL 25 MG/ML CARP/VIAL IV PRN (03:30)
[2024-11-17] MEDS ORDERED: LACTATED RINGER'S 500 ML IV PRN (03:30)
[2024-11-17] MEDS ORDERED: NALBUPHINE HCL INJ 10 MG/ML AMP IV PRN (03:30)
[2024-11-17] MEDS ORDERED: ONDANSETRON INJ 2 MG/ML 2 ML VIAL IV PRN ×2 (03:30→21:30)
[2024-11-17] MEDS ORDERED: PROMETHAZINE 6.25 MG/50.25 ML BAG IV PRN (03:30)
[2024-11-17] MEDS ORDERED: SODIUM CHLORIDE 0.9% 1,000 ML IV SCH (03:30)
[2024-11-17] MEDS ORDERED: DC INTRASPINAL MORPHINE SCH (03:30)
[2024-11-17] MEDS ORDERED: MoRPHine SULFATE 2 MG/ML CARP IV PRN (03:30)
[2024-11-17] MEDS ORDERED: HYDROmorphone INJ 0.5 MG/0.5 ML SYR IV PRN ×2 (03:30→21:30)
[2024-11-17] MEDS ORDERED: NO NARCOTICS OR SEDATIVES SCH (03:30)
[2024-11-17] MEDS ORDERED: ePHEDrine sulfate 50 MG/ML AMP IV PRN (03:30)
[2024-11-17] MEDS ORDERED: NALOXONE HCL 0.4 MG/1 ML VIAL/CARP IV PRN (03:30)
[2024-11-17] MEDS ORDERED: diphenhydrAMINE 50 MG/ML VIAL IV PRN ×2 (03:30→21:30)
[2024-11-17] MEDS ORDERED: NALOXONE HCL 0.08 MG in SYRINGE 1.8 ML IV PRN (03:30)
[2024-11-17] MEDS ORDERED: MoRPHine SULFATE PF 1 MG/ML 10 ML AMP/VIAL INT SPINAL ONE (03:30)
[2024-11-17] MEDS ORDERED: oxyCODONE HCL IR 5 MG TAB (IMMEDIATE RELEASE) PO PRN ×2 (03:30→21:30)
--- NOTE | 2024-11-17 03:30 | Anesthesiology Consultation ---
Date of Service November 17, 2024 Assessment & Plan Chart Review Chart Review: Acceptable Risk for Surgery and Patient NOT seen in Pre Admission Testing Consults Requested none ASA ASA2E Proposed Anesthesia Anesthesia Type: MAC Spinal (+intraspinal morphine) Risk / Benefits Reviewed With: PT / POA / Parent / Guardian, Accepts Plan and Informed Consent Obtained History Surgery Operation Date: 11/17/24 02:00 Proposed Procedures p Section in GIOVANNA - Andrez. Flako Sullivan MD, FACOG Height/Weight Height: 5 ft Weight: 81.647 kg Allergies Allergy/AdvReac Type Severity Reaction Status Date / Time amoxicillin Allergy Severe Rash, Verified 11/15/24 13:45 purpura Penicillins Allergy Severe Rash, Verified 11/15/24 13:45 purpura Medications Home Medications Medication Instructions Recorded Confirmed Last Taken prenat.vits,noreen,noe-lmva-vhmzi 1 tab PO DAILY 04/19/22 11/17/24 11/16/24 cholecalciferol (vitamin D3) 50 50 mcg PO DAILY 11/13/24 11/17/24 11/16/24 mcg (2,000 unit) tablet (Vitamin D3) docusate sodium 100 mg capsule 100 mg PO BID PRN prn 11/13/24 11/17/24 11/16/24 Past Medical History Medical History (Updated 11/13/24 @ 15:01 by Myra West) Non-allergic rhinitis Allergic rhinitis Lactose intolerance Exercise / Class Metabolic Activity II 4-5 Yardwork/Stairs/Walk up hill Past Family History Family History Grandmother (Maternal) Allergic rhinitis Sister Anxiety Multiple sclerosis Mother Ulcerative colitis Hypercholesteremia labor Diabetes Father Hypercholesteremia Denies family history of Ovarian cancer Breast cancer Colorectal cancer Past Surgical History Surgical History (Updated 11/13/24 @ 15:30 by Myra West) History of anesthesia reaction "Difficulty getting an epidural with previous childbirth" Primary performed 11/2022 at [facility] S/P section S/P skin biopsy Past Anesthesia History No Hx of Anesthesia Complications and No Family Hx of Anesthesia Complications History of PONV No Hx of PONV and No Hx of Motion Sickness Social History Smoking Status: Never smoker Do You Dip or Chew Tobacco: No Hx Alcohol Use: No Hx Substance Use: No substance use type: does not use Physical Exam Vital Signs Last Vital Signs Temp 36.7 C 11/17/24 00:29 Pulse 89 11/17/24 03:26 Resp 18 11/17/24 00:29 BP 116/57 L 11/17/24 03:21 Pulse Ox 98 11/17/24 03:26 ENMT Mouth: no dentition abnormality Thyromental Distance: > or= 3.5 Finger Breadths Mallampati Class: II Neck normal visual inspection Respiratory normal respiratory effort Auscultation: lungs clear to auscultation bilaterally Cardiovascular Rate/Rhythm: regular rate and regular rhythm Psychiatric Orientation: alert Testing Laboratory Results 11/17/24 01:17 Blood Type O Positive 11/17/24 01:17 Antibody Screen NEGATIVE 11/17/24 01:17
--- NOTE | 2024-11-17 03:32 | Anesthesiology Progress Note ---
Date of Service November 17, 2024 Anesthesia Post Procedure Vital Signs Vital Signs: Temp Pulse Resp BP Pulse Ox 11/17/24 03:26 89 98 11/17/24 03:21 93 H 116/57 L 98 11/17/24 00:29 36.7 C 112 H 18 132/87 11/17/24 00:26 112 H 132/87 Transfer of Care Handoff Completed per policy Notes Mental Status: alert / awake / arousable Nausea / Vomiting: adequately controlled Pain: adequately controlled Airway Patency, RR, SpO2: stable & adequate BP & HR: stable & adequate Hydration State: stable & adequate Neuraxial Anesthesia: was administered and sensory block is resolving Anesthetic Complications: no major complications apparent and Pt Satisfied with anesthetic care
[2024-11-17] MEDS ORDERED: HYDROCORTISONE ACETATE 25 MG SUPP PR PRN (03:33)
[2024-11-17] MEDS ORDERED: MAGNESIUM HYDROXIDE SUSP 30 ML UDC PO PRN (03:33)
[2024-11-17] MEDS ORDERED: OXYTOCIN 20 UNITS/LR 1,002 ML IV SCH (03:33)
[2024-11-17] MEDS ORDERED: DIPHTHER/TETAN/PERTUS Vaccine (Tdap, Adol/Adult) 0.5mL IM ONE (03:33)
[2024-11-17] MEDS ORDERED: SENNA 8.6 MG TAB PO PRN (03:33)
[2024-11-17] MEDS ORDERED: CALCIUM CARBONATE 500 MG CHEWABLE TAB PO PRN (03:33)
[2024-11-17] MEDS ORDERED: BENZOCAINE 20% SPRY 85 APPLN/85 GM CAN EXT PRN (03:33)
[2024-11-17] MEDS ORDERED: KETOROLAC 30 MG/ML VIAL ONE (03:45)
[2024-11-17] MEDS: KETOROLAC 30 MG/ML VIAL IV SCH (03:47)
[2024-11-17] MEDS: FERROUS SULFATE 325 MG TAB PO SCH (08:01)
[2024-11-17] MEDS: PRENATAL VITAMIN 1 TAB PO SCH (08:01)
[2024-11-17] MEDS: DOCUSATE SODIUM 100 MG CAP PO SCH (08:01)
[2024-11-17] MEDS: SIMETHICONE 80 MG CHEW PO SCH (08:01)
--- NOTE | 2024-11-17 09:30 | Obstetrical Progress Note ---
Date of Service November 17, 2024 Assessment & Plan (1) Encounter for pre-operative examination: post op day 0 Cont current care Subjective Ambulation: limited ambulation Voiding: helms catheter in place Passing Gas:: No Lochia:: Small Physical Exam Constitutional WD/WN, vitals as above well developed and well nourished Respiratory normal respiratory effort, lungs clear to auscultation normal respiratory effort Cardiovascular RRR, no murmur, no edema Gastrointestinal (Abdomen) normal bowel sounds, soft, nontender, no hepatosplenomegaly Results & Data Vital Signs (Past 12 Hours) Vital Signs Temp Pulse Resp BP BP Pulse Ox O2 Del Method 11/17/24 06:29 16 120/80 99 Room Air 11/17/24 05:56 99 H 98 11/17/24 05:51 97 11/17/24 05:51 103 H 11/17/24 05:51 100 H 116/69 11/17/24 05:46 103 H 97 11/17/24 05:41 97 11/17/24 05:41 102 H 11/17/24 05:41 91 H 108/61 11/17/24 05:36 97 H 98 11/17/24 05:31 97 11/17/24 05:31 95 H 11/17/24 05:31 100 H 119/67 11/17/24 05:26 103 H 97 11/17/24 05:24 18 Room Air 11/17/24 05:21 99 H 117/67 98 11/17/24 05:16 90 98 11/17/24 05:11 98 11/17/24 05:11 91 H 11/17/24 05:11 93 H 116/68 11/17/24 05:06 98 H 97 11/17/24 05:01 98 11/17/24 05:01 90 11/17/24 05:01 85 113/63 11/17/24 04:56 93 H 98 11/17/24 04:51 89 112/65 97 11/17/24 04:50 18 11/17/24 04:46 99 H 99 11/17/24 04:41 99 11/17/24 04:41 92 H 11/17/24 04:41 90 105/59 L 11/17/24 04:36 98 H 99 11/17/24 04:31 98 11/17/24 04:31 104 H 05/04/25 04:31 96 H 108/61 11/17/24 04:26 101 H 98 11/17/24 04:22 18 11/17/24 04:22 96 H 18 115/71 11/17/24 04:21 92 H 99 11/17/24 04:16 99 H 99 11/17/24 04:11 18 11/17/24 04:11 99 H 18 124/65 98 11/17/24 04:06 101 H 99 11/17/24 04:04 99 H 18 118/81 11/17/24 04:01 99 H 99 11/17/24 03:56 99 H 99 11/17/24 03:51 98 H 18 118/64 98 11/17/24 03:46 101 H 99 11/17/24 03:41 99 H 18 118/59 L 99 11/17/24 03:36 97 H 99 11/17/24 03:31 18 11/17/24 03:31 18 11/17/24 03:31 98 11/17/24 03:31 91 H 11/17/24 03:31 90 115/60 11/17/24 03:26 89 98 11/17/24 03:21 97.7 F 93 H 18 116/57 L 98 11/17/24 00:29 98.1 F 112 H 18 132/87 11/17/24 00:26 112 H 132/87
[2024-11-17] MEDS: ACETAMINOPHEN 325 MG TAB PO SCH (09:34)
[2024-11-17] MEDS ORDERED: PROMETHAZINE 12.5 MG/50.5 ML BAG IV PRN (21:30)
[2024-11-17] MEDS ORDERED: diphenhydrAMINE Capsule 25 MG CAP PO PRN (21:30)
[2024-11-18] MEDS ORDERED: KETOROLAC 30 MG/ML VIAL IV PRN (03:13)
[2024-11-18] MEDS: IBUPROFEN 600 MG TAB PO SCH (03:40)
[2024-11-18 06:18] LABS: Basophils # (auto) 0.06 K/uL (0.00-0.20); Basophils % (auto) 0.5 %; Eosinophils % (auto) 1.6 %; Hematocrit (blood only) 33.7 % (37.0-47.0); Hemoglobin 11.6 g/dl (12.0-16.0); Immature Granulocytes # (auto) 0.23 K/uL (0.01-0.20); Immature Granulocytes % (auto) 1.8 %; Lymphocytes # (auto) 2.53 K/uL (1.20-3.40); Lymphocytes % (auto) 19.7 %; Mean Corpuscular Hemoglobin 32.8 pg (25.0-34.0); Mean Corpuscular Hgb Conc 34.4 g/dL (32.0-36.0); Mean Corpuscular Volume 95.2 fL (80.0-100.0); Monocytes # (auto) 0.77 K/uL (0.11-0.59); Neutrophils # (auto) 9.05 K/uL (1.40-6.50); Neutrophils % (auto) 70.4 %; Platelet Count 112 K/uL (130-400); RDW Coefficient of Variation 12.8 % (11.5-14.5); RDW Standard Deviation 44.5 fL (36.4-46.3); Red Blood Count 3.54 M/uL (4.20-5.40); White Blood Count 12.84 K/ul (4.8-10.8)
--- NOTE | 2024-11-18 07:12 | Obstetrical Progress Note ---
Date of Service November 18, 2024 Assessment & Plan (1) Encounter for assessment: Plan: Patient is POD 1 s/p C/S and doing well - Eating well, voiding well, ambulating well - vitals reviewed and within normal limits - pain well controlled with analgesics - OOB, ambulation, diet progression as tolerated - Blood type: O+, GBS neg, rubella immune - Plan to discharge tomorrow - After discharge, 6 week follow up with [facility] O[facility]YN Admission and Anticipated Discharge Date Admission Date: November 17, 2024 Supervising Physician Co-Signing Physician Notes Resident Physician Supervision Note: I interviewed and examined the patient. Discussed with [Name of resident] and agree with findings and plan as documented in the note. Any exceptions or clarifications are listed here: [None] Documented By: Lindsey Sullivan MD, FACOG Subjective 29 yo post-operative day 1 s/p Ambulation: Has not ambulated yet Voiding: no voiding problems Passing Gas:: Yes Diet Tolerance:: regular diet Lochia:: Small Feeding Type:: breast feeding Current Pain Level:2/10 Resting comfortably this AM in NAD. Denies MCGUIRE, CP, SOB, N/V/D, LE pain/swelling. Physical Exam Physical Exam: General: patient resting comfortably, NAD, non-toxic in appearance, answers questions appropriately. Skin: warm, dry, intact HEENT: NC/AT, anicteric sclera, conjunctiva without injection, moist mucus membranes. Heart: +S1/S2, regular, no m/r/g Lungs: equal air entry bilaterally, no rales/rhonchi/wheezes Abd: +BS, soft, NT/ND, uterine fundus firm at umbilicus, caesarean incision C/D/I. Ext: warm, no clubbing/cyanosis or edema, Dorinda's neg. Neuro: nonfocal, speech intact, no facial droop, moving all extremities. Results & Data Vital Signs (Past 12 Hours) Vital Signs Temp Pulse Resp BP Pulse Ox O2 Del Method 11/18/24 00:30 36.5 C 86 16 105/71 97 Room Air 11/17/24 21:16 16 92 11/17/24 20:45 16 91 11/17/24 19:30 36.7 C 89 16 100/65 97 Room Air 11/17/24 19:15 16 97 Resident Activity Tracking Resident Involvement: Resident Care Provided Care Provided: OB Delivery
[2024-11-18 10:37] VITALS: RESP 18
[2024-11-18] MEDS: bisacodyL 5 MG TABEC PO SCH (20:53)
[2024-11-19] MEDS ORDERED: bisacodyL 10 MG SUPP PR PRN (03:13)
[2024-11-19] MEDS: IBUPROFEN 600 MG TAB PO PRN (04:16)
[2024-11-19 06:03] LABS: Hemoglobin 11.3 g/dl (12.0-16.0)
--- NOTE | 2024-11-19 07:12 | Obstetrical Progress Note ---
Date of Service November 19, 2024 Assessment & Plan (1) Encounter for assessment: Plan: Patient is POD 2 s/p C/S and doing well - Eating well, voiding well, ambulating well - vitals reviewed and within normal limits - pain well controlled with analgesics - OOB, ambulation, diet progression as tolerated - Blood type: O+, GBS neg, rubella immune - Plan to discharge tomorrow - After discharge, 6 week follow up with [facility] O[facility]YN Admission and Anticipated Discharge Date Admission Date: November 17, 2024 Supervising Physician Co-Signing Physician Notes Resident Physician Supervision Note: I interviewed and examined the patient. Discussed with Dr. Bustamante and agree with findings and plan as documented in the note. Any exceptions or clarifications are listed here: Doing well. Desires d/c. Instructions reviewed. Documented By: Anahy Godinez MD, FACOG Subjective 29 yo post-operative day 2 s/p Ambulation: Some mild increases in incisional pain and back pain with ambulation Voiding: no voiding problems Passing Gas:: Yes Diet Tolerance:: regular diet Lochia:: Small Feeding Type:: breast feeding Current Pain Level:2/10 Resting comfortably this AM in NAD. Denies MCGUIRE, CP, SOB, N/V/D, LE pain/swelling. Physical Exam Physical Exam: General: patient resting comfortably, NAD, non-toxic in appearance, answers questions appropriately. Skin: warm, dry, intact HEENT: NC/AT, anicteric sclera, conjunctiva without injection, moist mucus membranes. Heart: +S1/S2, regular, no m/r/g Lungs: equal air entry bilaterally, no rales/rhonchi/wheezes Abd: +BS, soft, NT/ND, uterine fundus firm at umbilicus, caesarean incision C/D/I. Ext: warm, no clubbing/cyanosis or edema Neuro: nonfocal, speech intact, no facial droop, moving all extremities. Results & Data Vital Signs (Past 12 Hours) Vital Signs Temp Pulse Pulse Resp BP Pulse Ox O2 Del Method 11/18/24 23:20 Room Air 11/18/24 23:20 36.7 C 86 18 122/84 97 Room Air 11/18/24 19:30 36.4 C L 96 H 18 109/75 97 Room Air Resident Activity Tracking Resident Involvement: Resident Care Provided Care Provided: OB Delivery
[2024-11-19 08:42] VITALS: BP 109/70; PULSE 97; TEMP 98.4; O2SAT 96
[2024-11-19] MEDS: ACETAMINOPHEN 325 MG TAB PO PRN (11:00)
--- NOTE | 2024-11-21 09:53 | Discharge Summary ---
Date of Service November 21, 2024 Admission HPI Per Admitting Provider ARLETTE Calculator Estimated Delivery Date Method Current WG Current Estimate 11/26/24 LMP (Certain) 38w 3d : 2 Full term: 1 Premature: 0 Total Number of Induced Abortions: 0 Total Number of Spontaneous Abortions: 0 Ectopics: 0 Multiple births: 0 Number of Living Children: 1 and Delivery Plans prior [id number]-[id number] like rpt C/S SCHEDULED FOR 11/25/[address] DAVIS Protocols We discussedand offered genetic testing at the visit today.This included cystic fibrosis and spinal muscular atrophy testing. Additionally we discussed and offered screening and diagnostic tests for chromosomal problems. These include NT, Quad screen, NIPS, Amniocentesis and CVS Admission Exam (Per Admitting) Constitutional WD/WN, vitals as above well developed and well nourished Respiratory normal respiratory effort, lungs clear to auscultation normal respiratory effort Cardiovascular RRR, no murmur, no edema Gastrointestinal (Abdomen) normal bowel sounds, soft, nontender, no hepatosplenomegaly Discharge Data Consultations 11/17/24 01:05 Consult Anesthesiology Stat Procedures Performed Operation Date: 11/17/24 02:00 Actual Procedures p Section in LD for [facility] at 0238(Bilateral) - Lindsey Davis MD, FACOG Hospital Course (1) Encounter for assessment: Patient is POD 2 s/p C/S and doing well - Eating well, voiding well, ambulating well - vitals reviewed and within normal limits - pain well controlled with analgesics - OOB, ambulation, diet progression as tolerated - Blood type: O+, GBS neg, rubella immune - Plan to discharge tomorrow - After discharge, 6 week follow up with [facility] Coding Level of Care Code None Diagnoses Encounter for assessment Z39.2
== END 2024-11-19 12:40 | disposition home or self-care (01) | DRG 788 ==
LOC: OPB 00:09 → 4S1 00:13 → 4E2 06:17
DX: Z88.0 Allergy status to penicillin; Z37.0 Single live birth; O34.211 Maternal care for low transverse scar from previous cesarean delivery; Z3A.38 38 weeks gestation of pregnancy